=== PATIENT | male | born 2000 | race Asian ===

== ENCOUNTER 2021-04-05 09:41 | Inpatient (IN) ==
[2021-04-05] MEDS ORDERED: SODIUM CHLORIDE 0.9% 1000ML 1,000 ML IV SCH (10:00)
--- NOTE | 2021-04-05 10:02 | Emergency Department Note ---
History of Present Illness General Chief complaint: Weakness Time Seen by Provider: 04/05/21 09:43 Source: patient Mode of arrival: EMS Limitations: no limitations History of Present Illness Provider complaint: weakness Associated symptoms: + malaise and + weakness; no headaches, no nausea/vomiting or no shortness of breath Treatments prior to arrival: none This is a 20-year-old male who presents via EMS due to concern for 3 weeks of increased weakness. Patient states he initially noticed weakness in his legs 3 weeks ago but then began to spread more proximally. He states he feels achiness in the bilateral thigh area however the rest of the leg feels weak and numb. He states he then noticed the weakness and numbness into his arms recently as well. He denies any recent trauma or injury preceding this although states he did fall trying to get out of bed this morning. He denies headaches, dizziness, vision changes, nausea or vomiting. He denies any recent illness or sickness. Denies any recent vaccination. Denies any prior history of abnormal vaccine reactions or Guillain-Colindres. Denies any family history of neurologic conditions. He denies any change in diet or activity. He denies use of alcohol and recreational drugs. Denies any other ongoing medical problems, states he does not take any medications. Patient is left-hand dominant. Denies neck or back pain or recent injury. Pt seen during a time of high acuity and national emergency pandemic while wearing PPE. 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 Beliefs That Will Affect Care: None Current Living Situation: Other Current Living Situation Comment: off campus housing How many Children do You have: 0 Other Information That Helps Us Care for You: No Feels Safe at Home: Yes Safety Concerns: Feels Safe At This Time Assistive Devices: None Review of Systems A total of 10 systems reviewed and were otherwise negative All systems reviewed & are unremarkable except as noted in HPI & below Physical Exam Vital Signs Vital Signs - 24 hr 04/05/21 09:57 04/05/21 11:24 Temperature 37.0 C Temperature Source Oral Pulse Rate 99 H Pulse Rate [Apical] 93 H Pulse Rhythm Regular Pulse Rhythm [Apical] Regular Pulse Strength Normal Respiratory Rate 14 23 Respiratory Effort / Characteristics Non-Labored Spontaneous Non-Labored Spontaneous Respiratory Depth Normal Normal Respiratory Pattern Regular Regular Blood Pressure 141/73 H Blood Pressure [Right Arm] 128/73 Blood Pressure Mean 95 Blood Pressure Mean [Right Arm] 91 Blood Pressure Position Lying Blood Pressure Position [Right Arm] Lying Pulse Oximetry 96 96 Oxygen Delivery Method Room Air Room Air Sepsis Recent Fever Within 48 Hours No Sepsis New/Unexplained Change in Mental Status N/A Sepsis Action Taken by Nursing No Action Required GENERAL: alert, well appearing, well nourished, no distress, non-toxic EYE EXAM: normal conjunctiva, PERRL and EOM's grossly intact OROPHARYNX: no exudate, no erythema, lips, buccal mucosa, and tongue normal and mucous membranes are moist NECK: supple, no nuchal rigidity, no adenopathy, non-tender LUNGS: Clear to auscultation. Normal chest wall mechanics, no w/r/r HEART: no murmurs, S1 normal and S2 normal ABDOMEN: abdomen soft, non-tender, normo-active bowel sounds, no masses, no rebound or guarding. BACK: Back is symmetrical on inspection and there is no deformity, no midline tenderness, no CVA tenderness. SKIN: no rashes and no bruising UPPER EXTREMITIES: upper extremities are grossly normal. nml pulses b/l. Sensation intact, no deformity, weakness noted. Slightly increased strength noticed in the left upper extremity compared to the right. LOWER EXTREMITIES: No pitting edema. nml pulses b/l. Sensation intact, no deformity, weakness noted. NEURO EXAM: Normal sensorium, cranial nerves II-XII grossly intact, normal speech, weakness noted bilateral upper and lower extremities with decreased reflexes more pronounced in the lower extremities. Gross sensation intact. Course Course 1102: Pt updated on results and in agreement with the plan. Administered Medications Potassium Chloride/Sodium Chloride (Normal Saline W/20 Meq Kcl) 20 meq in 1,000 mls @ 50 mls/hr IV .Q20H [facility] Stop: 05/05/21 13:59 Last Admin: 04/05/21 14:22 Dose: 50 mls/hr Documented by: [id number] Discontinued Medications Sodium Chloride (Nss 1000ml) 1,000 mls @ 125 mls/hr IV .Q8H [facility] Stop: 05/05/21 09:59 Last Infusion: 04/05/21 13:45 Dose: 0 mls/hr Documented by: [id number] Admin: 04/05/21 10:25 Dose: 125 mls/hr Documented by: [id number] Magnesium Sulfate/Dextrose (Magnesium Sulfate / D5w) 1 gm in 100 mls @ 100 mls/hr IV Q1H [facility] Stop: 04/05/21 11:55 Last Infusion: 04/05/21 13:43 Dose: 0 mls/hr Documented by: [id number] Admin: 04/05/21 11:23 Dose: 100 mls/hr Documented by: [id number] Infusion: 04/05/21 11:23 Dose: 100 mls/hr Documented by: [id number] Admin: 04/05/21 10:25 Dose: 100 mls/hr Documented by: [id number] Potassium Chloride 40 meq/ (Sodium Chloride) 1,020 mls @ 125 mls/hr IV .[facility] Stop: 05/05/21 10:59 Last Infusion: 04/05/21 13:46 Dose: 0 mls/hr Documented by: [id number] Admin: 04/05/21 11:11 Dose: 125 mls/hr Documented by: [id number] Potassium Chloride (K Nasim / Wtr) 10 meq in 100 mls @ 200 mls/hr IV NOW [facility] Stop: 04/05/21 11:26 Last Infusion: 04/05/21 13:43 Dose: 0 mls/hr Documented by: [id number] Admin: 04/05/21 11:11 Dose: 200 mls/hr Documented by: [id number] Potassium Chloride (K Nasim / Wtr) 10 meq in 100 mls @ 200 mls/hr IV Q30M [facility] Stop: 04/05/21 12:59 Last Admin: 04/05/21 15:04 Dose: Not Given Documented by: [id number] Infusion: 04/05/21 13:44 Dose: 0 mls/hr Documented by: [id number] Admin: 04/05/21 12:46 Dose: 200 mls/hr Documented by: [id number] Infusion: 04/05/21 12:35 Dose: 200 mls/hr Documented by: [id number] Admin: 04/05/21 12:05 Dose: 200 mls/hr Documented by: [id number] Sodium Phosphate 30 mmol/ (Sodium Chloride) 510 mls @ 88 mls/hr IV ONE ONE Stop: 04/05/21 17:02 Last Admin: 04/05/21 11:28 Dose: 88 mls/hr Documented by: [id number] Potassium Chloride (Potassium Chloride Crtab 20 Meq Tabcr) 40 meq PO NOW [facility] Stop: 04/05/21 10:43 Last Admin: 04/05/21 11:10 Dose: 40 meq Documented by: [id number] Critical Care Time Critical Care Time: Yes Total Critical Care Time: 39 Critical care of 39 min performed to assess and manage high likelihood of life- threatening electrolyte abnormalities, involving labs and imaging performed with assessment to evaluate EKG abnormalities and weakness with frequent reassessment. This time includes bedside time, treatment discussions with patient/family/consultants, documentation time and excludes procedure time. Medical Decision Making Differential Diagnosis Differential Diagnosis includes but is not limited to dehydration, stroke, anemia, hypoglycemia, hyponatremia, hypernatremia, urinary tract infection, pneumonia, bronchitis, sepsis, gastroenteritis, additional abdominal pathology, metabolic abnormalities and infections. Medical Records Attestation: I reviewed the patient's medical records. Home Medications Current Medication List: was personally reviewed by me Laboratory Data Attestation: I reviewed the patient's lab results. Result diagrams: 04/05/21 09:35 04/05/21 14:33 Lab Results 04/05/21 04/05/21 04/05/21 Range/Units 09:35 09:35 10:05 WBC 9.23 (4.8-10.8) K/uL RBC 5.75 (4.7-6.1) M/uL Hgb 16.8 (14.0-18.0) g/dL Hct 48.5 (42-52) % MCV 84.3 (80-100) fL MCH 29.2 (25-34) pg MCHC 34.6 (32-36) g/dL RDW Std Deviation 36.7 (36.4-46.3) fL RDW Coeff of Rory 12.0 (11.5-14.5) % Plt Count 363 (130-400) K/uL MPV 10.6 H (7.4-10.4) fL Immature Gran % (Auto) 0.1 % Neut % (Auto) 80.1 % Lymph % (Auto) 14.7 % [place] % (Auto) 4.9 % Eos % (Auto) 0.1 % Baso % (Auto) 0.1 % Neut # (Auto) 7.39 H (1.4-6.5) K/uL Lymph # (Auto) 1.36 (1.2-3.4) K/uL [place] # (Auto) 0.45 (0.11-0.59) K/uL Eos # (Auto) 0.01 (0-0.5) K/uL Baso # (Auto) 0.01 (0-0.2) K/uL Immature Gran # (Auto) 0.01 (0.00-0.02) K/uL Sodium 142 (136-145) mmol/L Potassium 1.6 L* (3.5-5.1) mmol/L Chloride 111 H (98-107) mmol/L Carbon Dioxide 22 (21-32) mmol/L Anion Gap 9.0 (3-11) BUN 18 (7-18) mg/dl Creatinine 0.74 (0.6-1.4) mg/dl Est Cr Clr Drug Dosing 165.4 ml/min Est GFR ( Amer) > 150.0 ml/min Est GFR (Non-Af Amer) 131.9 ml/min BUN/Creatinine Ratio 24.7 H (10-20) Glucose 132 H (70-99) mg/dl Calcium 9.6 (8.5-10.1) mg/dl Phosphorus 1.2 L* (2.5-4.9) mg/dl Magnesium 2.1 (1.8-2.4) mg/dl Total Bilirubin 0.3 (0.2-1) mg/dl AST 37 (15-37) U/L ALT 78 (12-78) Alkaline Phosphatase 59 (45-117) U/L Troponin I < 0.015 (0-0.045) ng/ml Total Protein 8.3 H (6.4-8.2) gm/dl Albumin 4.1 (3.4-5.0) gm/dl Globulin 4.2 H (2.5-4.0) gm/dl Albumin/Globulin Ratio 1.0 (0.9-2) Lipase 93 (73-393) U/L TSH < 0.005 L (0.300-4.500) uIu/ml Free T4 2.88 H (0.8-1.6) ng/dl Specimen Hemolysis SARS-CoV-2, RNA, NAAT NEGATIVE (NEGATIVE) Imaging Data Radiologist's Impression: Head CT 04/05/21 09:53 CT SCAN OF THE BRAIN WITHOUT IV CONTRAST CLINICAL HISTORY: Generalized weakness. COMPARISON STUDY: No priors. TECHNIQUE: Unenhanced axial CT scan of the brain is performed from the vertex to the skull base. A dose lowering technique was utilized adhering to the principles of ALARA. CT DOSE: 638.56 mGycm FINDINGS: Brain parenchyma: The brain parenchyma is normal in appearance. There is no hemorrhage, mass effect, or evidence of acute territorial ischemia by CT criteria. Manjarrez-white matter differentiation is preserved. No extra-axial fluid collection is seen. Ventricles, sulci, cisterns: Normal in configuration. Intracranial vasculature: The visualized intracranial vasculature at the skull base is normal in appearance. Calvarium: Unremarkable. Sinuses and mastoids: The visualized paranasal sinuses are clear. The mastoid air cells are well pneumatized. Orbits: The bony orbits are grossly intact. IMPRESSION: No acute intracranial abnormality. ACT 112: Negative or not required by law. Electronically signed by: Bjorn Perez M.D. 04/05/2021 10:18 AM Chest X-Ray 04/05/21 09:56 XR chest 1V portable HISTORY: weakness COMPARISON: None. FINDINGS: The lungs are clear. Cardiac silhouette is normal in size. No pleural effusions. No pneumothorax. IMPRESSION: No acute process. ACT 112: Negative or not required by law. Electronically signed by: Clay Toledo M.D. 04/05/2021 11:13 AM ECG Data Attestation: I personally reviewed and interpreted this ECG as follows: Indication: + weakness Rate (beats per minute): 95 Rhythm: + normal sinus ECG Intervals/blocks: + Normal QRS and + Prolonged QT ECG Kinards: + Normal ECG ST segments: + Nonspecific ST abnormalities MDM Narrative This is a 20-year-old male presents the emergency department complaining of increasing weakness over the last 3 weeks. Patient states that started distally and has now become more proximal. Patient denied any recent illness or prior reaction, no history of neurologic conditions including in the family. No recent vaccinations to suggest Guillain-Colindres. Patient was afebrile and hemodynamically stable. Patient's EKG suggestive of electrolyte abnormality and due to the prolonged QTC patient was initially started on IV magnesium while other labs were pending. Patient found to have significant hypokalemia at 1.6 as well as hypophosphatemia. Patient made aware of all results and need for additional inpatient monitoring and treatment, he verbalized understanding. Case discussed with hospitalist. Patient remained hemodynamically stable with no additional ectopy or dysrhythmia while in the emergency room. Patient was started on IV repletion of magnesium as well as IV and oral repletion of his potassium and additional IV phosphorus repletion. While the etiology of his significant electrolyte abnormality is unclear given patient denied any medication changes or recreational drugs, I feel his weakness is most likely related to these. Given accompanying thyroid abnormalities, a thyrotoxic periodic paralysis is also possible. An order was placed for continuous cardiac monitoring. The monitor shows a rate of _96____ with __normal sinus____ rhythm. Impression & Plan Weakness, Hypokalemia, Hypophosphatemia, Abnormal TSH Discharge Plan Visit Data Chief Complaint: Weakness ED Provider: Tara Leone Discharge Problem: Weakness, Hypokalemia, Hypophosphatemia, Abnormal TSH Patient Disposition: Admitted As Inpatient Discharge Instructions Interventions: ED Discharge Assessment Last Done: 04/05/21 13:40
[2021-04-05 10:10] LABS: Basophils # (auto) 0.01 K/uL (0-0.2); Basophils % (auto) 0.1 %; Eosinophils # (auto) 0.01 K/uL (0-0.5); Eosinophils % (auto) 0.1 %; Hematocrit (blood only) 48.5 % (42-52); Hemoglobin 16.8 g/dL (14.0-18.0); Immature Granulocytes # (auto) 0.01 K/uL (0.00-0.02); Immature Granulocytes % (auto) 0.1 %; Lymphocytes # (auto) 1.36 K/uL (1.2-3.4); Lymphocytes % (auto) 14.7 %; Mean Corpuscular Hemoglobin 29.2 pg (25-34); Mean Corpuscular Hgb Conc 34.6 g/dL (32-36); Mean Corpuscular Volume 84.3 fL (80-100); Mean Platelet Volume 10.6 fL (7.4-10.4); Monocytes # (auto) 0.45 K/uL (0.11-0.59); Monocytes % (auto) 4.9 %; Neutrophils # (auto) 7.39 K/uL (1.4-6.5); Neutrophils % (auto) 80.1 %; Platelet Count 363 K/uL (130-400); RDW Standard Deviation 36.7 fL (36.4-46.3); Red Blood Count 5.75 M/uL (4.7-6.1); White Blood Count 9.23 K/uL (4.8-10.8)
--- NOTE | 2021-04-05 10:19 | CT Scan Report ---
CT SCAN OF THE BRAIN WITHOUT IV CONTRAST CLINICAL HISTORY: Generalized weakness. COMPARISON STUDY: No priors. TECHNIQUE: Unenhanced axial CT scan of the brain is performed from the vertex to the skull base. A d ose lowering technique was utilized adhering to the principles of ALARA. CT DOSE: 638.56 mGycm FINDINGS: Brain parenchyma: The brain parenchyma is normal in appearance. There is no hemorrhage, mass effect, or evidence of acute territorial ischemia by CT criteria. Manjarrez-white matter differentiation is preser arik. No extra-axial fluid collection is seen. Ventricles, sulci, cisterns: Normal in configuration. Intracranial vasculature: The visualized intracranial vasculature at the skull base is normal in appe arance. Calvarium: Unremarkable. Sinuses and mastoids: The visualized paranasal sinuses are clear. The mastoid air cells are well pneu matized. Orbits: The bony orbits are grossly intact. IMPRESSION: No acute intracranial abnormality. ACT 112: Negative or not required by law. Electronically signed by: Bjorn Perez M.D. 04/05/2021 10:18 AM
[2021-04-05] MEDS: MAGNESIUM SULFATE / D5W 1 GM/100 ML BAG IV SCH ×2 (10:25→11:23)
[2021-04-05] MEDS ORDERED: POTASSIUM CHLORIDE CRTAB 20 MEQ TABCR PO STA (10:42)
[2021-04-05 10:46] LABS: Alanine Aminotransferase 78 (12-78); Albumin Level 4.1 gm/dl (3.4-5.0); Alkaline Phosphatase 59 U/L (45-117); Aspartate Aminotransferase 37 U/L (15-37); BUN Creatinine Ratio 24.7 (10-20); Bilirubin,Total 0.3 mg/dl (0.2-1); Blood Urea Nitrogen 18 mg/dl (7-18); Calcium 9.6 mg/dl (8.5-10.1); Carbon Dioxide 22 mmol/L (21-32); Chloride 111 mmol/L (98-107); Creatinine Clr Calc Pharmacy 165.4 ml/min; Est GFR (African American) > 150.0 ml/min; Est GFR (Non-African American) 131.9 ml/min; Globulin 4.2 gm/dl (2.5-4.0); Glucose 132 mg/dl (70-99); Lipase 93 U/L (73-393); Phosphorus 1.2 mg/dl (2.5-4.9); Potassium 1.6 mmol/L (3.5-5.1); Sodium 142 mmol/L (136-145); Thyroid Stimulating Hormone < 0.005 uIu/ml (0.300-4.500); Total Protein 8.3 gm/dl (6.4-8.2); Troponin I < 0.015 ng/ml (0-0.045)
[2021-04-05] MEDS ORDERED: POTASSIUM CHLORIDE / WTR 10 MEQ/100 ML PLCT IV STA (10:57)
[2021-04-05] MEDS ORDERED: POTASSIUM CHLORIDE 40 MEQ in SODIUM CHLORIDE 0.9% 1000ML 1,000 ML IV SCH (11:00)
[2021-04-05 11:03] LABS: T4 Free Thyroxine 2.88 ng/dl (0.8-1.6)
[2021-04-05] MEDS ORDERED: SODIUM PHOSPHATE 30 MMOL in SODIUM CHLORIDE 0.9% 500 ML IV ONE (11:15)
--- NOTE | 2021-04-05 11:15 | XRay Report ---
XR chest 1V portable HISTORY: weakness COMPARISON: None. FINDINGS: The lungs are clear. Cardiac silhouette is normal in size. No pleural effusions. No pneumot horax. IMPRESSION: No acute process. ACT 112: Negative or not required by law. Electronically signed by: Clay Toledo M.D. 04/05/2021 11:13 AM
[2021-04-05 11:37] LABS: Magnesium 2.1 mg/dl (1.8-2.4)
[2021-04-05] MEDS: POTASSIUM CHLORIDE / WTR 10 MEQ/100 ML PLCT IV SCH ×3 (12:05→15:04)
--- NOTE | 2021-04-05 13:48 | History & Physical Report ---
Date of Service April 05, 2021 Assessment & Plan (1) Hypokalemia: (2) Hypophosphatemia: (3) Renal tubular acidosis: (4) Abnormal TSH: Plan: Mr. Perez is a 20-year-old Khmer male without any known chronic medical conditions who presented to [facility] ER today with Profound Weakness, Severe Hypokalemia, and Hypophosphatemia which are likely secondary to RTA. His weakness began approximately 3 weeks ago and has progressively worsened to the point that he cannot hold himself upright or stand up today. He describes an ache in his bilateral thighs and the rest of his legs feel weak and numb. He has noticed some weakness and numbness in his arms as well. He denies any injury preceding this symptoms -- although he did fall trying to get out of bed this morning due to the weakness. Patient denies headaches, dizziness, vision changes, blind spots, black spots, loss of visual ortiz, nausea, or vomiting. He denies any recent illnesses or sickness. He has had any recent vaccines. He denies any prior history of Guillain-Colindres or ever having these symptoms in the past. He denies any family history of neurologic conditions. He denies any changes in his diet or activities. He does not drink alcohol or use any recreational drugs. Patient is left-hand dominant. He denies neck or back pain or recent injury. He does not take any medications on a routine basis. In emergency room, the patient has markedly abnormal laboratories. Serum potassium levels 1.6 mmol/L, serum phosphorus level is low at 1.2 mg/dL. Blood glucose is 132 mg/dL, total protein and globulin are slightly elevated. Calcium levels within normal limits at 9.6 mg/dL. Serum magnesium level is 2.1 mg/dL. COVID test is negative. His EKG shows normal sinus rhythm at 95 beats per minute with an incomplete RBBB, corrected QT interval as 665 msec, this is an abnormal EKG. No prior tracings are available for comparison. Patient has received IV Sodium Phosphate, IV NSS with potassium Chloride rider, and oral supplementation as well. Recommend the followin. Admit to telemetry due to EKG changes and prolonged QT interval and the presence of marked electrolyte abnormalities. 2. Continue IV fluids, correct electrolyte abnormalities. 3. Consult Nephrology for suspected RTA. 4. Follow daily labs closely. Check urine pH. 5. Consider Methimazole for suppressed TSH. History of Present Illness Chief Complaint: -- Profound Weakness. -- Hypokalemia 1.6 mmol/L. -- Hypophosphatemia. -- Probable Renal Tubular Acidosis. Primary Care Provider: [facility] Mr. Perez is a 20-year-old Khmer male without any known chronic medical conditions who presented to [facility] ER today with Profound Weakness that began approximately 3 weeks ago and has progressively worsened to the point that he cannot hold himself upright or stand up today. He describes an ache in his bilateral thighs and the rest of his legs feel weak and numb. He has noticed some weakness and numbness in his arms as well. He denies any injury preceding this symptoms -- although he did fall trying to get out of bed this morning due to the weakness. Patient denies headaches, dizziness, vision changes, blind spots, black spots, loss of visual ortiz, nausea, or vomiting. He denies any recent illnesses or sickness. He has had any recent vaccines. He denies any prior history of Guillain-Colindres or ever having these symptoms in the past. He denies any family history of neurologic conditions. He denies any changes in his diet or activities. He does not drink alcohol or use any recreational drugs. Patient is left-hand dominant. He denies neck or back pain or recent injury. He does not take any medications on a routine basis. In emergency room, the patient has markedly abnormal laboratories. Serum potassium levels 1.6 mmol/L, serum phosphorus level is low at 1.2 mg/dL. Blood glucose is 132 mg/dL, total protein and globulin are slightly elevated. Calcium levels within normal limits at 9.6 mg/dL. Serum magnesium level is 2.1 mg/dL. COVID test is negative. His EKG shows normal sinus rhythm at 95 beats per minute with an incomplete RBBB, corrected QT interval as 665 msec, this is an abnormal EKG. No prior tracings are available for comparison. Allergies Allergy/AdvReac Type Severity Reaction Status Date / Time No Known Allergies Allergy Unverified 04/05/21 11:23 Home Medications Medication Instructions Recorded Confirmed Type No Known Home Medications 11/14/19 04/05/21 History Past Med/Surg History Medical History (Updated 04/05/21 @ 17:19 by Tara S. Pheasant, DO) No pertinent past medical history Surgical History No pertinent past surgical history Social History Smoking Status: Never smoker Hx Alcohol Use: Yes Hx Substance Use: No Preferred Language: Ugandan Communication Ability: Effective Medical Director Of Hospice Required: No Beliefs That Will Affect Care: None Current Living Situation: Other Current Living Situation Comment: off campus housing How many Children do You have: 0 Other Information That Helps Us Care for You: No Feels Safe at Home: Yes Safety Concerns: Feels Safe At This Time Assistive Devices: None Review of Systems Review of Systems: ROS is negative except as mentioned in HPI. Physical Exam Physical Exam: GENERAL: Patient lying on ER litter,no acute distress. HEENT: Head is atraumatic, normocephalic. EOM's intact. Facies symmetric. No perioral cyanosis. NECK: No JVD. JVP is not elevated. Carotid upstrokes are + 2 bilaterally. No bruits are noted. CHEST/LUNGS: Clear to auscultation throughout all lung ortiz. No wheezes, rales, or crackles. CVS: S1 and S2 are regular without obvious murmurs, gallops, or rubs. PMI is nondisplaced. No lifts, heaves, or thrills. No abdominal aortic or renal bruits. ABDOMINAL EXAM: Bowel sounds are present. No masses, organomegaly, or tenderness. EXTREMITIES: No clubbing or cyanosis. No edema. Intact posterior tibial and radial pulses bilaterally. NEUROLOGIC EXAM: Patient is awake, alert, and oriented. Pleasant and cooperative. Answers questions appropriately. Speech is clear. Weakness is noted in the major muscle groups of bilateral lower and upper extremities. Diminished deep tendon reflexes in upper and lower extremities, more pronounced in the lower extremities. Gait pattern not assessed. Results & Data Results & Data ([facility]) Vital Signs (Past 12 Hours) Vital Signs Temp Pulse Pulse Resp BP BP Pulse Ox 04/05/21 12:46 98 H 24 140/60 96 04/05/21 11:24 93 H 23 128/73 96 04/05/21 09:57 37.0 C 99 H 14 141/73 H 96 Laboratory Results Laboratory Results - last 24 hr 04/05/21 04/05/21 04/05/21 09:35 09:35 10:05 WBC 9.23 RBC 5.75 Hgb 16.8 Hct 48.5 MCV 84.3 MCH 29.2 MCHC 34.6 RDW Std Deviation 36.7 RDW Coeff of Rory 12.0 Plt Count 363 MPV 10.6 H Immature Gran % (Auto) 0.1 Neut % (Auto) 80.1 Lymph % (Auto) 14.7 Graves % (Auto) 4.9 Eos % (Auto) 0.1 Baso % (Auto) 0.1 Neut # (Auto) 7.39 H Lymph # (Auto) 1.36 Graves # (Auto) 0.45 Eos # (Auto) 0.01 Baso # (Auto) 0.01 Immature Gran # (Auto) 0.01 Sodium 142 Potassium 1.6 L* Chloride 111 H Carbon Dioxide 22 Anion Gap 9.0 BUN 18 Creatinine 0.74 Est Cr Clr Drug Dosing 165.4 Est GFR ( Amer) > 150.0 Est GFR (Non-Af Amer) 131.9 BUN/Creatinine Ratio 24.7 H Glucose 132 H Calcium 9.6 Phosphorus 1.2 L* Magnesium 2.1 Total Bilirubin 0.3 AST 37 ALT 78 Alkaline Phosphatase 59 Troponin I < 0.015 Total Protein 8.3 H Albumin 4.1 Globulin 4.2 H Albumin/Globulin Ratio 1.0 Lipase 93 TSH < 0.005 L Free T4 2.88 H Specimen Hemolysis SARS-CoV-2, RNA, NAAT NEGATIVE Diagnostic Findings CXR 04/05/21: -- No acute processes. Medications Administered Medications No Known Home Medications 11/14/19 [History Confirmed 04/05/21] Home Medications Enoxaparin Sodium (Enoxaparin Inj 40 Mg/0.4 Ml Syr) 40 mg SQ Q24H [facility] Stop: 05/05/21 13:40 Sodium Phosphate 30 mmol/ (Sodium Chloride) 510 mls @ 88 mls/hr IV ONE ONE Stop: 04/05/21 17:02 Last Admin: 04/05/21 11:28 Dose: 88 mls/hr Documented by: Potassium Chloride/Sodium Chloride (Normal Saline W/20 Meq Kcl) 20 meq in 1,000 mls @ 50 mls/hr IV .Q20H [facility] Stop: 05/05/21 13:40 Code Status & VTE Plan Code Status Full Code VTE Prophylaxis Plan VTE Prophylaxis will be ordered: Yes Supervising Physician Co-Signing Physician Notes During face to face encoutner, I obtained a history and physical examination Discussed plan of care with patient and APC Nithin I reviewed above note and agree with it. Answered all of the patient's questions. Patient will be admitted for hyperkalemia. dimitri consult nephro for possible RTA workup given no obvious cause of hypokalemia in patient. PG Care Time/CCT Total # of Minutes Spent Total Time Spent with Patient: Total time spent is greater than 50% in coordination of care (as documented) at patient's floor/unit and/or counseling patient:38 Coding Level of Care Code 06870 Initial Inpt Care Lvl 3 Diagnoses Hypokalemia E87.6 Hypophosphatemia E83.39 Renal tubular acidosis N25.89 Abnormal TSH R79.89 Time Spent (min) 55
[2021-04-05] MEDS: NSS + 20MEQ KCL 20 MEQ/1,000 ML BAG IV SCH (14:22)
[2021-04-05 15:16] LABS: Bacteria Urine Automated Negative (Negative); Epithelial Cell Urine Auto >30 /lpf (0-5); RBC Urine Automated 0-4 /hpf (0-4)
[2021-04-05 15:31] LABS: Alanine Aminotransferase 62 (12-78); Albumin Level 3.3 gm/dl (3.4-5.0); Alkaline Phosphatase 49 U/L (45-117); Aspartate Aminotransferase 25 U/L (15-37); Bilirubin,Total 0.4 mg/dl (0.2-1); Blood Urea Nitrogen 16 mg/dl (7-18); Calcium 8.3 mg/dl (8.5-10.1); Carbon Dioxide 20 mmol/L (21-32); Chloride 114 mmol/L (98-107); Creatinine Clr Calc Pharmacy 198.5 ml/min; Est GFR (African American) > 150.0 ml/min; Est GFR (Non-African American) 143.7 ml/min; Globulin 3.4 gm/dl (2.5-4.0); Glucose 117 mg/dl (70-99); Phosphorus 4.3 mg/dl (2.5-4.9); Potassium 3.4 mmol/L (3.5-5.1); Sodium 142 mmol/L (136-145); Total Protein 6.7 gm/dl (6.4-8.2)
--- NOTE | 2021-04-05 16:01 | Nephrology Consultation ---
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 Perez is a 20 year old male who is seen at the request of the [facility] service to assist in the evaluation and management of electrolyte abnormalities and weakness. 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 He reports no chronic medical illnesses and is on no chronic medications. He has no family history of thyroid or renal disorder. Mr. Perez states that he recently visited [facility] and did a lot of walking. Upon returning home he became weak and found that it was difficult to stand from a sitting position. This progressively worsened and began to affect his arms as well. Mr. Perez presented to the [facility] EMD where he was found to have K 1.6, Mg 2.1 and PO4 1.2. ECG revealed QT interval 665 msec. He was admitted to the hospitalist service and potassium and phosphate supplementation has been started. Of note, thyroid function studies were also ordered. TSH was undetectable and T4 was high at 2.88. Allergies Allergy/AdvReac Type Severity Reaction Status Date / Time No Known Allergies Allergy Unverified 04/05/21 11:23 Home Medications Medication Instructions Recorded Confirmed Type No Known Home Medications 11/14/19 04/05/21 History Patient History Medical History (Updated 04/05/21 @ 15:53 by Wojciech Benjamin MD) No pertinent past medical history Surgical History No pertinent past surgical history Social History Smoking Status: Never smoker Hx Alcohol Use: Yes Hx Substance Use: No Preferred Language: Ghanaian Communication Ability: Effective Facer Operator Required: No Beliefs That Will Affect Care: None Current Living Situation: Other Current Living Situation Comment: off campus housing How many Children do You have: 0 Other Information That Helps Us Care for You: No Feels Safe at Home: Yes Safety Concerns: Feels Safe At This Time Assistive Devices: None Review of Systems Constitutional: no fever Eyes: no problem reported Ear, Nose, Mouth, Throat: no problem reported Respiratory: no cough and no dyspnea Cardiovascular: + palpitations; no chest pain and no edema Gastrointestinal: no abdominal pain, no nausea, no vomiting and no diarrhea/loose stools Genitourinary: no dysuria, no urinary hesitancy or no hematuria Musculoskeletal: no back pain Integumentary: no rash Neurologic: + generalized weakness Physical Exam Constitutional: healthy appearing; not in distress Eyes: PERRL, conjunctivae normal, anicteric sclerae ENMT: external ear and nose normal, oropharynx normal Neck: trachea midline, no thyromegaly Respiratory: normal respiratory effort, lungs clear to auscultation Cardiovascular: Rate/Rhythm: regular rate and + tachycardic Gastrointestinal (Abdomen): normal bowel sounds, soft, nontender, no hepatosplenomegaly Skin: no rashes, warm and dry Neurologic: awake; not confused Results & Data ([facility]) Vital Signs (Past 12 Hours) Vital Signs Temp Pulse Pulse Resp BP BP Pulse Ox 04/05/21 15:19 115 H 04/05/21 15:05 36.6 C 107 H 20 143/76 H 94 04/05/21 13:49 36.7 C 102 H 16 105/56 L 99 04/05/21 13:30 107 H 04/05/21 12:46 98 H 24 140/60 96 04/05/21 11:24 93 H 23 128/73 96 04/05/21 09:57 37.0 C 99 H 14 141/73 H 96 Laboratory Results Laboratory Results - last 48 hr 04/05/21 04/05/21 04/05/21 09:35 09:35 10:05 WBC 9.23 RBC 5.75 Hgb 16.8 Hct 48.5 MCV 84.3 MCH 29.2 MCHC 34.6 RDW Std Deviation 36.7 RDW Coeff of Rory 12.0 Plt Count 363 MPV 10.6 H Immature Gran % (Auto) 0.1 Neut % (Auto) 80.1 Lymph % (Auto) 14.7 Jack % (Auto) 4.9 Eos % (Auto) 0.1 Baso % (Auto) 0.1 Neut # (Auto) 7.39 H Lymph # (Auto) 1.36 Jack # (Auto) 0.45 Eos # (Auto) 0.01 Baso # (Auto) 0.01 Immature Gran # (Auto) 0.01 Sodium 142 Potassium 1.6 L* Chloride 111 H Carbon Dioxide 22 Anion Gap 9.0 BUN 18 Creatinine 0.74 Est Cr Clr Drug Dosing 165.4 Est GFR ( Amer) > 150.0 Est GFR (Non-Af Amer) 131.9 BUN/Creatinine Ratio 24.7 H Glucose 132 H Calcium 9.6 Phosphorus 1.2 L* Magnesium 2.1 Total Bilirubin 0.3 AST 37 ALT 78 Alkaline Phosphatase 59 Troponin I < 0.015 Total Protein 8.3 H Albumin 4.1 Globulin 4.2 H Albumin/Globulin Ratio 1.0 Lipase 93 TSH < 0.005 L Free T4 2.88 H Specimen Hemolysis Urine WBC (Auto) Urine RBC (Auto) U Hyaline Cast (Auto) U Epithel Cells (Auto) Urine Bacteria (Auto) SARS-CoV-2, RNA, NAAT NEGATIVE 04/05/21 04/05/21 14:33 Unknown WBC RBC Hgb Hct MCV MCH MCHC RDW Std Deviation RDW Coeff of Rory Plt Count MPV Immature Gran % (Auto) Neut % (Auto) Lymph % (Auto) Jack % (Auto) Eos % (Auto) Baso % (Auto) Neut # (Auto) Lymph # (Auto) Jack # (Auto) Eos # (Auto) Baso # (Auto) Immature Gran # (Auto) Sodium 142 Potassium 3.4 L D Chloride 114 H Carbon Dioxide 20 L Anion Gap 8.0 BUN 16 Creatinine 0.60 Est Cr Clr Drug Dosing 198.5 Est GFR ( Amer) > 150.0 Est GFR (Non-Af Amer) 143.7 BUN/Creatinine Ratio 27.0 H Glucose 117 H Calcium 8.3 L Phosphorus 4.3 D Magnesium Total Bilirubin 0.4 AST 25 ALT 62 Alkaline Phosphatase 49 Troponin I Total Protein 6.7 Albumin 3.3 L Globulin 3.4 Albumin/Globulin Ratio 1.0 Lipase TSH Free T4 Specimen Hemolysis Urine WBC (Auto) 10-30 H Urine RBC (Auto) 0-4 U Hyaline Cast (Auto) 5-10 H U Epithel Cells (Auto) >30 H Urine Bacteria (Auto) Negative SARS-CoV-2, RNA, NAAT PG Care Time/CCT Total # of Minutes Spent Total Time Spent with Patient: Total time spent is greater than 50% in coordination of care (as documented) at patient's floor/unit and/or counseling patient: Coding Level of Care Code 60470 Inpt Consult Level 5 Diagnoses Thyrotoxic periodic paralysis G72.3
[2021-04-05 17:02] LABS: Magnesium 2.2 mg/dl (1.8-2.4)
[2021-04-05] MEDS ORDERED: ENOXAPARIN INJ 40 MG/0.4 ML SYR SQ SCH (21:00)
[2021-04-06 07:42] LABS: Chloride 109 mmol/L (98-107); Potassium 4.1 mmol/L (3.5-5.1); Sodium 139 mmol/L (136-145)
[2021-04-06 07:45] LABS: Alanine Aminotransferase 75 (12-78); Albumin Level 3.6 gm/dl (3.4-5.0); Aspartate Aminotransferase 38 U/L (15-37); BUN Creatinine Ratio 13.4 (10-20); Blood Urea Nitrogen 9 mg/dl (7-18); Calcium 9.5 mg/dl (8.5-10.1); Carbon Dioxide 24 mmol/L (21-32); Creatinine Clr Calc Pharmacy 173.7 ml/min; Est GFR (African American) > 150.0 ml/min; Est GFR (Non-African American) 136.5 ml/min; Glucose 93 mg/dl (70-99); Magnesium 2.2 mg/dl (1.8-2.4)
[2021-04-06 07:48] LABS: Alkaline Phosphatase 52 U/L (45-117); Bilirubin,Total 0.7 mg/dl (0.2-1); Globulin 3.7 gm/dl (2.5-4.0); Phosphorus 3.9 mg/dl (2.5-4.9); Total Protein 7.3 gm/dl (6.4-8.2)
--- NOTE | 2021-04-06 07:58 | Hospitalist Progress Note ---
Date of Service April 06, 2021 Assessment & Plan Plan: Assessment & Plan (1) Hypokalemia: (2) Hypophosphatemia: (3) Renal tubular acidosis: (4) Abnormal TSH: Admission and Anticipated Discharge Date Admission Date: April 05, 2021 Review of Systems Constitutional: no fever and no chills Respiratory: no cough, no chest congestion, no dyspnea and no wheezing Cardiovascular: no chest pain, no palpitations and no edema Gastrointestinal: no abdominal pain, no heartburn, no nausea, no vomiting and no change in bowel habits Neurologic: no gait abnormality, no falls and no headache(s) Physical Exam Physical Exam: Constitutional: WD/WN, vitals as above ENMT: External ear and nose normal, TMs and EAC normal Neck: trachea midline, no thyromegaly Lymphatic: No cervical lymphadenopathy Respiratory: Effort normal, CTA B/L CV: RRR, no murmur, no edema Abdomen: normal bowel sounds, soft, nontender, no hepatosplenomegaly Neurologic: Normal gait Musculoskeletal: Skin: Psychiatric: Results & Data Results & Data ([facility]) Vital Signs (Past 12 Hours) Vital Signs Temp Pulse Pulse Resp BP Pulse Ox 04/06/21 07:06 80 04/06/21 03:25 36.6 C 84 17 113/75 97 04/06/21 00:06 36.8 C 100 H 16 98/63 L 96 Laboratory Results Laboratory Results - last 24 hr 04/05/21 04/05/21 04/05/21 09:35 09:35 10:05 WBC 9.23 RBC 5.75 Hgb 16.8 Hct 48.5 MCV 84.3 MCH 29.2 MCHC 34.6 RDW Std Deviation 36.7 RDW Coeff of Rory 12.0 Plt Count 363 MPV 10.6 H Immature Gran % (Auto) 0.1 Neut % (Auto) 80.1 Lymph % (Auto) 14.7 [place] % (Auto) 4.9 Eos % (Auto) 0.1 Baso % (Auto) 0.1 Neut # (Auto) 7.39 H Lymph # (Auto) 1.36 [place] # (Auto) 0.45 Eos # (Auto) 0.01 Baso # (Auto) 0.01 Immature Gran # (Auto) 0.01 Sodium 142 Potassium 1.6 L* Chloride 111 H Carbon Dioxide 22 Anion Gap 9.0 BUN 18 Creatinine 0.74 Est Cr Clr Drug Dosing 165.4 Est GFR ( Amer) > 150.0 Est GFR (Non-Af Amer) 131.9 BUN/Creatinine Ratio 24.7 H Glucose 132 H Calcium 9.6 Phosphorus 1.2 L* Magnesium 2.1 Total Bilirubin 0.3 AST 37 ALT 78 Alkaline Phosphatase 59 Troponin I < 0.015 Total Protein 8.3 H Albumin 4.1 Globulin 4.2 H Albumin/Globulin Ratio 1.0 Lipase 93 TSH < 0.005 L Free T4 2.88 H Specimen Hemolysis Urine WBC (Auto) Urine RBC (Auto) U Hyaline Cast (Auto) U Epithel Cells (Auto) Urine Bacteria (Auto) SARS-CoV-2, RNA, NAAT NEGATIVE 04/05/21 04/05/21 04/06/21 14:33 Unknown 06:57 WBC RBC Hgb Hct MCV MCH MCHC RDW Std Deviation RDW Coeff of Rory Plt Count MPV Immature Gran % (Auto) Neut % (Auto) Lymph % (Auto) [place] % (Auto) Eos % (Auto) Baso % (Auto) Neut # (Auto) Lymph # (Auto) [place] # (Auto) Eos # (Auto) Baso # (Auto) Immature Gran # (Auto) Sodium 142 139 Potassium 3.4 L D 4.1 D Chloride 114 H 109 H Carbon Dioxide 20 L 24 Anion Gap 8.0 6.0 BUN 16 9 D Creatinine 0.60 0.68 Est Cr Clr Drug Dosing 198.5 173.7 Est GFR ( Amer) > 150.0 > 150.0 Est GFR (Non-Af Amer) 143.7 136.5 BUN/Creatinine Ratio 27.0 H 13.4 Glucose 117 H 93 Calcium 8.3 L 9.5 Phosphorus 4.3 D 3.9 Magnesium 2.2 2.2 Total Bilirubin 0.4 0.7 AST 25 38 H ALT 62 75 Alkaline Phosphatase 49 52 Troponin I Total Protein 6.7 7.3 Albumin 3.3 L 3.6 Globulin 3.4 3.7 Albumin/Globulin Ratio 1.0 1.0 Lipase TSH Free T4 Specimen Hemolysis Urine WBC (Auto) 10-30 H Urine RBC (Auto) 0-4 U Hyaline Cast (Auto) 5-10 H U Epithel Cells (Auto) >30 H Urine Bacteria (Auto) Negative SARS-CoV-2, RNA, NAAT Medications Administered Current Inpatient Medications Enoxaparin Sodium (Enoxaparin Inj 40 Mg/0.4 Ml Syr) 40 mg SQ Q24H MARICRUZ Stop: 05/05/21 20:59 Last Admin: 04/05/21 20:09 Dose: Not Given Documented by: Potassium Chloride/Sodium Chloride (Normal Saline W/20 Meq Kcl) 20 meq in 1,000 mls @ 50 mls/hr IV .Q20H MARICRUZ Stop: 05/05/21 13:59 Last Admin: 04/05/21 14:22 Dose: 50 mls/hr Documented by: PG Care Time/CCT Total # of Minutes Spent Total Time Spent with Patient: Total time spent is greater than 50% in coordination of care (as documented) at patient's floor/unit and/or counseling patient: Coding
--- NOTE | 2021-04-06 09:30 | Nephrology Progress Note ---
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 Electrolytes have been corrected * Advised avoiding strenuous exercise, large carbohydrate meals until evaluated by Endocrinology * Recommend consultation w/ Endocrinology for management of hyperthyroidism * No further Nephrology evaluation indicated at this time. Will sign off. Please call if further assistance is needed Admission and Anticipated Discharge Date Admission Date: April 05, 2021 Subjective Mr. Perez was evaluated in his hospital room this morning. He was able to ambulate to the BR yesterday. He is anxious to return home. Review of Systems Constitutional: no fever Eyes: no problem reported Ear, Nose, Mouth, Throat: no problem reported Respiratory: no cough and no dyspnea Cardiovascular: + palpitations; no chest pain and no edema Gastrointestinal: no abdominal pain, no nausea, no vomiting and no diarrhea/loose stools Genitourinary: no dysuria, no urinary hesitancy or no hematuria Musculoskeletal: no back pain Integumentary: no rash Physical Exam Constitutional: healthy appearing; not in distress Eyes: PERRL, conjunctivae normal, anicteric sclerae ENMT: external ear and nose normal, oropharynx normal Neck: trachea midline, no thyromegaly Respiratory: normal respiratory effort, lungs clear to auscultation Cardiovascular: Rate/Rhythm: regular rate and + tachycardic Gastrointestinal (Abdomen): normal bowel sounds, soft, nontender, no hepatosplenomegaly Skin: no rashes, warm and dry Neurologic: awake; not confused Results & Data ([facility]) Vital Signs (Past 12 Hours) Vital Signs Temp Pulse Pulse Resp BP Pulse Ox 04/06/21 07:58 36.8 C 88 16 96/61 L 96 04/06/21 07:06 80 04/06/21 03:25 36.6 C 84 17 113/75 97 04/06/21 00:06 36.8 C 100 H 16 98/63 L 96 Laboratory Results Laboratory Tests 04/05/21 04/06/21 09:35 06:57 Sodium 139 Potassium 4.1 D Chloride 109 H Carbon Dioxide 24 BUN 9 D Creatinine 0.68 Est GFR (Non-Af Amer) 136.5 Glucose 93 Calcium 9.5 Phosphorus 3.9 Magnesium 2.2 TSH < 0.005 L Free T4 2.88 H PG Care Time/CCT Total # of Minutes Spent Total Time Spent with Patient: Total time spent is greater than 50% in coordination of care (as documented) at patient's floor/unit and/or counseling patient: Coding Level of Care Code 62905 Subseq Hosp Care Lvl 3 Diagnoses Thyrotoxic periodic paralysis G72.3
[2021-04-06] MEDS: NSS + 20MEQ KCL 20 MEQ/1,000 ML BAG IV SCH (11:13)
[2021-04-06] MEDS ORDERED: PROPRANOLOL HCL 20 MG TAB PO SCH (11:45)
[2021-04-06 12:59] LABS: Blood Urea Nitrogen 11 mg/dl (7-18); Calcium 9.6 mg/dl (8.5-10.1); Carbon Dioxide 25 mmol/L (21-32); Chloride 107 mmol/L (98-107); Creatinine Clr Calc Pharmacy 155.4 ml/min; Est GFR (African American) > 150.0 ml/min; Est GFR (Non-African American) 130.4 ml/min; Glucose 106 mg/dl (70-99); Magnesium 2.1 mg/dl (1.8-2.4); Potassium 4.3 mmol/L (3.5-5.1); Sodium 140 mmol/L (136-145)
[2021-04-06 13:10] LABS: Phosphorus 3.6 mg/dl (2.5-4.9); Thyroid Stimulating Hormone < 0.005 uIu/ml (0.300-4.500)
[2021-04-06 13:25] LABS: T4 Free Thyroxine 3.29 ng/dl (0.8-1.6)
--- NOTE | 2021-04-06 15:11 | Discharge Summary ---
Date of Service April 06, 2021 Admission HPI Per Admitting Provider Mr. Perez is a 20-year-old Frisian male without any known chronic medical conditions who presented to [facility] ER today with Profound Weakness that began approximately 3 weeks ago and has progressively worsened to the point that he cannot hold himself upright or stand up today. He describes an ache in his bilateral thighs and the rest of his legs feel weak and numb. He has noticed some weakness and numbness in his arms as well. He denies any injury preceding this symptoms -- although he did fall trying to get out of bed this morning due to the weakness. Patient denies headaches, dizziness, vision changes, blind spots, black spots, loss of visual ortiz, nausea, or vomiting. He denies any recent illnesses or sickness. He has had any recent vaccines. He denies any prior history of Guillain-Colindres or ever having these symptoms in the past. He denies any family history of neurologic conditions. He denies any changes in his diet or activities. He does not drink alcohol or use any recreational drugs. Patient is left-hand dominant. He denies neck or back pain or recent injury. He does not take any medications on a routine basis. In emergency room, the patient has markedly abnormal laboratories. Serum potassium levels 1.6 mmol/L, serum phosphorus level is low at 1.2 mg/dL. Blood glucose is 132 mg/dL, total protein and globulin are slightly elevated. Calcium levels within normal limits at 9.6 mg/dL. Serum magnesium level is 2.1 mg/dL. COVID test is negative. His EKG shows normal sinus rhythm at 95 beats per minute with an incomplete RBBB, corrected QT interval as 665 msec, this is an abnormal EKG. No prior tracings are available for comparison. Admission Exam Per Admitting Provider GENERAL: Patient lying on ER litter,no acute distress. HEENT: Head is atraumatic, normocephalic. EOM's intact. Facies symmetric. No perioral cyanosis. NECK: No JVD. JVP is not elevated. Carotid upstrokes are + 2 bilaterally. No bruits are noted. CHEST/LUNGS: Clear to auscultation throughout all lung ortiz. No wheezes, rales, or crackles. CVS: S1 and S2 are regular without obvious murmurs, gallops, or rubs. PMI is nondisplaced. No lifts, heaves, or thrills. No abdominal aortic or renal bruits. ABDOMINAL EXAM: Bowel sounds are present. No masses, organomegaly, or tenderness. EXTREMITIES: No clubbing or cyanosis. No edema. Intact posterior tibial and radial pulses bilaterally. NEUROLOGIC EXAM: Patient is awake, alert, and oriented. Pleasant and cooperative. Answers questions appropriately. Speech is clear. Weakness is noted in the major muscle groups of bilateral lower and upper extremities. Diminished deep tendon reflexes in upper and lower extremities, more pronounced in the lower extremities. Gait pattern not assessed. Principal Diagnosis Thyrotoxic periodic paralysis Discharge Exam Neck trachea midline, no thyromegaly Thyroid: normal thyroid Respiratory normal respiratory effort, lungs clear to auscultation Cardiovascular RRR, no murmur, no edema Gastrointestinal (Abdomen) normal bowel sounds, soft, nontender, no hepatosplenomegaly Discharge Data Allergies Allergy/AdvReac Type Severity Reaction Status Date / Time No Known Allergies Allergy Unverified 04/05/21 11:23 Consultations 04/05/21 11:43 ED Decision to Admit Stat 04/05/21 13:41 Consult Nephrology Routine Ordered Studies 04/05/21 09:53 CT head/brain wo con Stat Hospital Course (1) Thyrotoxic periodic paralysis: (2) Hypophosphatemia: (3) Hypokalemia: (4) Hypophosphatemia: (5) Weakness: (6) Hyperthyroidism determined by thyroid function test: 20-year-old male presenting with hypokalemia hypophosphatemia and weakness presenting to the emergency room for evaluation. During his hospital stay and evaluation electrolytes were replaced, symptoms resolved quickly. Nephrology consult her for possible renal tubular acidosis, was found to have hyperthyroidism and diagnosed with thyrotoxic periodic paralysis. Patient's has no complaints at this time. Is expressing desire to leave the hospital, is concerned about future finals at [employer]. Follow-up lab work was completed All of normalized, patient is eating well with no weakness at this time. started on low dose of propranolol 40 mg daily hopefully reduce chances a repeat symptoms Made the patient aware it is important that he follows up with [facility] for repeat lab work and endocrinology will contact the patient to make a follow-up appointment to further evaluate and treat his hyperthyroidism Total Time Total Time Spent Total Time Spent (In Minutes): >30 Discharge Plan Discharge Items Patient Disposition: Home - Self-Care Reason For Visit: HYPOKALEMIA,HYPOPHPSPHATEMIA,WEAKNESS Discharge Diagnosis: Thyrotoxicosis Periodic paralysis Hyperthyroidism Condition on Discharge: Good Activity: As commented below Activity Comment: Recommendeed reduced physical Activity until evaluation by Endocrinology Lifting: Gradually increase as tolerated Bathing: No limitations Sexual Activity: When tolerated Exercise/Sports: None Driving/Machine Use: No limitations Weightbearing: Full weightbearing Non-emergency contact: Primary Care Provider Call non-emergency contact if: you have any medication questions, your symptoms worsen and you have a fever Follow-up/Referrals: Karson Foote MD [Physician] - [facility] [Primary Care Provider] - Diet: Regular Ambulatory Orders: Basic Metabolic Panel (Routine) Timeframe: 2 Days Location: Determined by Patient Ordered By: Rivas Bermudez Magnesium (Routine) Timeframe: 2 Days Location: Determined by Patient Ordered By: Rivas Bermudez Phosphorus (Routine) Timeframe: 2 Days Location: Determined by Patient Ordered By: Rivas Bermudez Addtl Attending Provider Instructions: follow-up with [facility], obtain repeat lab work at urine appointment Follow-up with endocrinology to evaluate and treat hyperthyroidism Pending Studies at Discharge: No Stand-Alone Forms: [employer], Smoking Cessation Medications and DC Order Prescriptions: New propranolol 20 mg Tablet 40 mg PO DAILY Qty: 30 RF: 0 No Action No Known Home Medications RF: 0 Discharge Orders: Discharge Order (Routine); Ordered 04/06/21 Ordered By: Rivas Bermudez Admission Data Admit Date/Time: 04/05/21 12:18 Attending Provider: Rivas Bermudez Admit Provider: Jer Mcnamara Primary Care Provider: [facility] Other Providers: Jer Mcnamara ; Wojciech Benjamin Coding Level of Care Code 57875 OBS Care - Discharge Diagnoses Thyrotoxic periodic paralysis G72.3 Hypophosphatemia E83.39 Hypokalemia E87.6 Hypophosphatemia E83.39 Weakness R53.1 Hyperthyroidism determined by thyroid function test E05.90; R94.6
--- NOTE | 2021-04-06 16:00 | Electrocardiogram Report ---
Test Reason : Blood Pressure : / mmHG Vent. Rate : 095 BPM Atrial Rate : 095 BPM P-R Int : 192 ms QRS Dur : 112 ms QT Int : 440 ms P-R-T Axes : 077 087 023 degrees QTc Int : 554 ms Normal sinus rhythm with 1st degree A-V block Incomplete right bundle branch block Prolonged QT Abnormal ECG No previous ECGs available Confirmed by Bijan Hernández ([id number]) on 04/06/2021 3:59:50 PM Referred By: Confirmed By:Bijan Hernández
== END 2021-04-06 16:55 | disposition home or self-care (01) | DRG 93 ==
LOC: ED 09:41 → 2S 12:18 → SUATTDRO 12:18 → 2S 13:40

== ENCOUNTER 2021-04-16 03:22 | Inpatient (IN) ==
[2021-04-16 04:49] LABS: Basophils # (auto) 0.01 K/uL (0-0.2); Basophils % (auto) 0.2 %; Eosinophils # (auto) 0.14 K/uL (0-0.5); Eosinophils % (auto) 2.2 %; Hematocrit (blood only) 48.6 % (42-52); Hemoglobin 16.5 g/dL (14.0-18.0); Immature Granulocytes # (auto) 0.01 K/uL (0.00-0.02); Immature Granulocytes % (auto) 0.2 %; Lymphocytes # (auto) 1.66 K/uL (1.2-3.4); Lymphocytes % (auto) 25.7 %; Mean Corpuscular Hemoglobin 28.7 pg (25-34); Mean Corpuscular Volume 84.7 fL (80-100); Mean Platelet Volume 10.5 fL (7.4-10.4); Monocytes % (auto) 7.8 %; Neutrophils # (auto) 4.13 K/uL (1.4-6.5); Neutrophils % (auto) 63.9 %; Platelet Count 346 K/uL (130-400); RDW Coefficient of Variation 12.2 % (11.5-14.5); RDW Standard Deviation 37.8 fL (36.4-46.3); Red Blood Count 5.74 M/uL (4.7-6.1); White Blood Count 6.45 K/uL (4.8-10.8)
[2021-04-16 05:07] LABS: Partial Thromboplastin Ratio 1.1; Prothrombin Time 10.1 Seconds (9.0-12.0)
[2021-04-16 05:33] LABS: Alanine Aminotransferase 72 (12-78); Albumin Globulin Ratio 0.9 (0.9-2); Albumin Level 3.7 gm/dl (3.4-5.0); Alkaline Phosphatase 67 U/L (45-117); Aspartate Aminotransferase 22 U/L (15-37); BUN Creatinine Ratio 19.2 (10-20); Bilirubin,Total 0.3 mg/dl (0.2-1); Blood Urea Nitrogen 13 mg/dl (7-18); C Reactive Protein 0.34 mg/dl (0-0.29); Calcium 9.5 mg/dl (8.5-10.1); Carbon Dioxide 26 mmol/L (21-32); Chloride 110 mmol/L (98-107); Creatine Kinase 471 U/L (39-308); Creatinine Clr Calc Pharmacy 188.2 ml/min; Est GFR (African American) > 150.0 ml/min; Est GFR (Non-African American) 138.2 ml/min; Globulin 3.9 gm/dl (2.5-4.0); Glucose 130 mg/dl (70-99); Phosphorus 2.1 mg/dl (2.5-4.9); Sodium 142 mmol/L (136-145); Thyroid Stimulating Hormone < 0.005 uIu/ml (0.300-4.500); Total Protein 7.6 gm/dl (6.4-8.2); Troponin I < 0.015 ng/ml (0-0.045)
[2021-04-16] MEDS ORDERED: POTASSIUM CHLORIDE / WTR 10 MEQ/100 ML PLCT IV ONE (05:35)
[2021-04-16] MEDS ORDERED: POTASSIUM CHLORIDE CRTAB 20 MEQ TABCR PO STA (05:35)
[2021-04-16 05:39] LABS: Lyme Ab IgG w/WB Rflx Negative (Negative); Lyme Ab IgM w/WB Rflx Negative (Negative)
[2021-04-16 05:55] LABS: T4 Free Thyroxine 2.28 ng/dl (0.8-1.6)
--- NOTE | 2021-04-16 07:14 | Emergency Department Note ---
History of Present Illness General Chief complaint: Leg Weakness, Bilateral Stated complaint: LEGS NOT WORKING RIGHT Time Seen by Provider: 04/16/21 03:33 History of Present Illness Maximum Pain Intensity: 8 This is a 20-year-old male presenting to the emergency department for evaluation of decreased sensation and difficulty moving his right leg. The patient was seen and evaluated in this facility for similar symptoms roughly 2 weeks ago. At that visit he was found to be hyperthyroid with impressive hypokalemia at 1.6. 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 His potassium was repleted and he did feel better. Evidently the patient followed with endocrinology and has started on Tapazole. He states he has been taking his medications as prescribed. The patient was improving since the time of discharge, but states that he went running 2 days ago. The patient was explicitly instructed to reduce physical activity, but states he did not realize this was contraindicated with his condition. After running he did develop his discomfort. He states that his pain is an 8/10, and not as bad as it was initially, as today it is notably affecting his right leg. Home Medications Medication Instructions Recorded Confirmed Type propranolol 20 mg tablet 40 mg PO DAILY #30 tab 04/06/21 Rx methimazole 10 mg tablet 20 mg PO BID #90 tab 04/08/21 Rx Allergies Allergy/AdvReac Type Severity Reaction Status Date / Time No Known Allergies Allergy Unverified 04/05/21 11:23 Past Med/Surg History Medical History Abnormal TSH Hypokalemia No pertinent past medical history Thyrotoxic periodic paralysis Surgical History No pertinent past surgical history Social History Smoking Status: Never smoker Hx Alcohol Use: Yes Hx Substance Use: No Preferred Language: Syriac Communication Ability: Effective 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 Beliefs That Will Affect Care: None Current Living Situation: Other Current Living Situation Comment: off campus housing How many Children do You have: 0 Feels Safe at Home: Yes Assistive Devices: None Review of Systems A total of 10 systems reviewed and were otherwise negative Physical Exam Vital Signs Vital Signs - 24 hr 04/16/21 03:26 04/16/21 05:23 04/16/21 05:25 Temperature 37.2 C Temperature Source Temporal Artery Scan Pulse Rate 105 H 100 H Pulse Rate [Finger] 96 H Respiratory Rate 16 Respiratory Effort / Characteristics Non-Labored Spontaneous Respiratory Depth Normal Blood Pressure 139/67 Blood Pressure [Left Arm] 137/73 Blood Pressure Mean 91 Blood Pressure Mean [Left Arm] 94 Blood Pressure Position [Left Arm] Sitting Pulse Oximetry 97 97 97 Oxygen Delivery Method Room Air Room Air Room Air Sepsis Recent Fever Within 48 Hours No Sepsis New/Unexplained Change in Mental Status No Sepsis Action Taken by Nursing No Action Required VITALS: Vitals are noted on the nurse's note and reviewed by myself. Vital signs stable. GENERAL: Well-developed, well-nourished, male, who is in no acute distress and resting comfortably. Patient is cooperative with the examination. HEAD: Normocephalic atraumatic. HEART: Regular rate and rhythm without murmurs gallops or rubs. LUNGS: Clear to auscultation bilaterally without wheezes, rales or rhonchi. No retractions or accessory muscle use. ABDOMEN: Positive normal bowel sounds x 4. Soft, nontender, without masses or organomegaly. No guarding or rebound tenderness. MUSCULOSKELETAL: No muscle atrophy, erythema, or edema noted. No tenderness to palpation. NEURO: Patient was alert and oriented to person place and time. CN II through XII grossly intact. Course Administered Medications Discontinued Medications Potassium Chloride (K Nasim / Wtr) 10 meq in 100 mls @ 100 mls/hr IV ONE ONE; P rotocol Stop: 04/16/21 06:34 Last Infusion: 04/16/21 06:52 Dose: 0 mls/hr Documented by: [id number] Admin: 04/16/21 05:51 Dose: 100 mls/hr Documented by: [id number] Potassium Chloride (Potassium Chloride Crtab 20 Meq Tabcr) 40 meq PO NOW STA Stop: 04/16/21 05:36 Last Admin: 04/16/21 05:51 Dose: 40 meq Documented by: [id number] Medical Decision Making Differential Diagnosis Differential includes acute coronary syndrome, myocardial infarction, CVA, TIA, anemia, infection, pneumonia, UTI, pyelonephritis, poor nutrition, dehydration, electrolyte disturbance,hypoglycemia. Laboratory Data Result diagrams: 04/16/21 04:32 04/16/21 04:32 Lab Results 04/16/21 04/16/21 04/16/21 Range/Units 04:16 04:32 04:32 WBC 6.45 (4.8-10.8) K/uL RBC 5.74 (4.7-6.1) M/uL Hgb 16.5 (14.0-18.0) g/dL Hct 48.6 (42-52) % MCV 84.7 (80-100) fL MCH 28.7 (25-34) pg MCHC 34.0 (32-36) g/dL RDW Std Deviation 37.8 (36.4-46.3) fL RDW Coeff of Rory 12.2 (11.5-14.5) % Plt Count 346 (130-400) K/uL MPV 10.5 H (7.4-10.4) fL Immature Gran % (Auto) 0.2 % Neut % (Auto) 63.9 % Lymph % (Auto) 25.7 % Mesa % (Auto) 7.8 % Eos % (Auto) 2.2 % Baso % (Auto) 0.2 % Neut # (Auto) 4.13 (1.4-6.5) K/uL Lymph # (Auto) 1.66 (1.2-3.4) K/uL Mesa # (Auto) 0.50 (0.11-0.59) K/uL Eos # (Auto) 0.14 (0-0.5) K/uL Baso # (Auto) 0.01 (0-0.2) K/uL Immature Gran # (Auto) 0.01 (0.00-0.02) K/uL ESR 12 (0-15) mm/hr PT (9.0-12.0) Seconds INR (0.9-1.1) APTT (21.0-31.0) Seconds PTT Ratio Sodium (136-145) mmol/L Potassium (3.5-5.1) mmol/L Chloride (98-107) mmol/L Carbon Dioxide (21-32) mmol/L Anion Gap (3-11) BUN (7-18) mg/dl Creatinine (0.6-1.4) mg/dl Est Cr Clr Drug Dosing ml/min Est GFR ( Amer) ml/min Est GFR (Non-Af Amer) ml/min BUN/Creatinine Ratio (10-20) Glucose (70-99) mg/dl Calcium (8.5-10.1) mg/dl Phosphorus (2.5-4.9) mg/dl Magnesium (1.8-2.4) mg/dl Total Bilirubin (0.2-1) mg/dl AST (15-37) U/L ALT (12-78) Alkaline Phosphatase (45-117) U/L Total Creatine Kinase (39-308) U/L Troponin I (0-0.045) ng/ml C-Reactive Protein (0-0.29) mg/dl Total Protein (6.4-8.2) gm/dl Albumin (3.4-5.0) gm/dl Globulin (2.5-4.0) gm/dl Albumin/Globulin Ratio (0.9-2) TSH (0.300-4.500) uIu/ml Free T4 (0.8-1.6) ng/dl Ethyl Alcohol mg/dL (0-3) mg/dl Lyme Disease IgG Ab (Negative) Lyme Disease IgM Ab (Negative) SARS-CoV-2, RNA, NAAT NEGATIVE (NEGATIVE) 04/16/21 04/16/21 04/16/21 Range/Units 04:32 04:32 04:32 WBC (4.8-10.8) K/uL RBC (4.7-6.1) M/uL Hgb (14.0-18.0) g/dL Hct (42-52) % MCV (80-100) fL MCH (25-34) pg MCHC (32-36) g/dL RDW Std Deviation (36.4-46.3) fL RDW Coeff of Rory (11.5-14.5) % Plt Count (130-400) K/uL MPV (7.4-10.4) fL Immature Gran % (Auto) % Neut % (Auto) % Lymph % (Auto) % Mesa % (Auto) % Eos % (Auto) % Baso % (Auto) % Neut # (Auto) (1.4-6.5) K/uL Lymph # (Auto) (1.2-3.4) K/uL Mesa # (Auto) (0.11-0.59) K/uL Eos # (Auto) (0-0.5) K/uL Baso # (Auto) (0-0.2) K/uL Immature Gran # (Auto) (0.00-0.02) K/uL ESR (0-15) mm/hr PT 10.1 (9.0-12.0) Seconds INR 1.0 (0.9-1.1) APTT 28.0 (21.0-31.0) Seconds PTT Ratio 1.1 Sodium 142 (136-145) mmol/L Potassium 2.0 L* (3.5-5.1) mmol/L Chloride 110 H (98-107) mmol/L Carbon Dioxide 26 (21-32) mmol/L Anion Gap 6.0 (3-11) BUN 13 (7-18) mg/dl Creatinine 0.66 (0.6-1.4) mg/dl Est Cr Clr Drug Dosing 188.2 ml/min Est GFR ( Amer) > 150.0 ml/min Est GFR (Non-Af Amer) 138.2 ml/min BUN/Creatinine Ratio 19.2 (10-20) Glucose 130 H (70-99) mg/dl Calcium 9.5 (8.5-10.1) mg/dl Phosphorus 2.1 L (2.5-4.9) mg/dl Magnesium 2.0 (1.8-2.4) mg/dl Total Bilirubin 0.3 (0.2-1) mg/dl AST 22 (15-37) U/L ALT 72 (12-78) Alkaline Phosphatase 67 (45-117) U/L Total Creatine Kinase 471 H (39-308) U/L Troponin I < 0.015 (0-0.045) ng/ml C-Reactive Protein 0.34 H (0-0.29) mg/dl Total Protein 7.6 (6.4-8.2) gm/dl Albumin 3.7 (3.4-5.0) gm/dl Globulin 3.9 (2.5-4.0) gm/dl Albumin/Globulin Ratio 0.9 (0.9-2) TSH < 0.005 L (0.300-4.500) uIu/ml Free T4 2.28 H (0.8-1.6) ng/dl Ethyl Alcohol mg/dL < 3.0 (0-3) mg/dl Lyme Disease IgG Ab (Negative) Lyme Disease IgM Ab (Negative) SARS-CoV-2, RNA, NAAT (NEGATIVE) 04/16/21 Range/Units 04:32 WBC (4.8-10.8) K/uL RBC (4.7-6.1) M/uL Hgb (14.0-18.0) g/dL Hct (42-52) % MCV (80-100) fL MCH (25-34) pg MCHC (32-36) g/dL RDW Std Deviation (36.4-46.3) fL RDW Coeff of Rory (11.5-14.5) % Plt Count (130-400) K/uL MPV (7.4-10.4) fL Immature Gran % (Auto) % Neut % (Auto) % Lymph % (Auto) % Mesa % (Auto) % Eos % (Auto) % Baso % (Auto) % Neut # (Auto) (1.4-6.5) K/uL Lymph # (Auto) (1.2-3.4) K/uL Mesa # (Auto) (0.11-0.59) K/uL Eos # (Auto) (0-0.5) K/uL Baso # (Auto) (0-0.2) K/uL Immature Gran # (Auto) (0.00-0.02) K/uL ESR (0-15) mm/hr PT (9.0-12.0) Seconds INR (0.9-1.1) APTT (21.0-31.0) Seconds PTT Ratio Sodium (136-145) mmol/L Potassium (3.5-5.1) mmol/L Chloride (98-107) mmol/L Carbon Dioxide (21-32) mmol/L Anion Gap (3-11) BUN (7-18) mg/dl Creatinine (0.6-1.4) mg/dl Est Cr Clr Drug Dosing ml/min Est GFR ( Amer) ml/min Est GFR (Non-Af Amer) ml/min BUN/Creatinine Ratio (10-20) Glucose (70-99) mg/dl Calcium (8.5-10.1) mg/dl Phosphorus (2.5-4.9) mg/dl Magnesium (1.8-2.4) mg/dl Total Bilirubin (0.2-1) mg/dl AST (15-37) U/L ALT (12-78) Alkaline Phosphatase (45-117) U/L Total Creatine Kinase (39-308) U/L Troponin I (0-0.045) ng/ml C-Reactive Protein (0-0.29) mg/dl Total Protein (6.4-8.2) gm/dl Albumin (3.4-5.0) gm/dl Globulin (2.5-4.0) gm/dl Albumin/Globulin Ratio (0.9-2) TSH (0.300-4.500) uIu/ml Free T4 (0.8-1.6) ng/dl Ethyl Alcohol mg/dL (0-3) mg/dl Lyme Disease IgG Ab Negative (Negative) Lyme Disease IgM Ab Negative (Negative) SARS-CoV-2, RNA, NAAT (NEGATIVE) ECG Data Attestation: I personally reviewed and interpreted this ECG as follows: Indication: + weakness Additional Comments: Normal sinus rhythm @93 bpm Incomplete right bundle branch block Lateral infarct , age undetermined Abnormal ECG When compared with ECG of 05-APR-2021 09:54, Lateral infarct is now Present ST no longer depressed in Inferior leads QT has shortened MDM Narrative Physical exam and history were performed. Nursing notes, EMR, and Medication List were personally reviewed. Patient appears to have weakness of his right leg. He does have recent diagnosis of thyrotoxic periodic paralysis, and did exercise 2 days ago. IV access was established and labs were obtained. An order was placed for continuous cardiac monitoring. The monitor shows a rate of 96 with normal sinus rhythm. The patient's blood work is as above and was reviewed. He does not have a significantly elevated white blood cell count, gross anemia, or significant bandemia. Potassium is notably low at 2.0. TSH is essentially 0 with an elevated T4. The patient was given 40 mEq potassium p.o. as well as 10 mEq IV. Covid was performed and negative.Magnesium is normal at 2. Phosphorus is slightly low at 2.1. CK is 471. Lyme is negative. Overall the patient does not appear well for discharge home. He does have a very low potassium, likely from his thyroid disease. The case was discussed with the on-call hospitalist team who agreed to evaluate the patient here in the ER. Please see their dictation for further patient course, plan, disposition. The chart was completed utilizing [employer] Speech Voice Recognition Software. Grammatical errors, random word insertions, pronoun errors, and incomplete sentences are an occasional consequence of this system due to software limitations, ambient noise, and hardware issues. Any formal questions or concerns about the content, text, or information contained within the body of this dictation should be directly addressed to the provider for clarification. . Impression & Plan Hypokalemia, Weakness, Abnormal TSH Discharge Plan Visit Data Chief Complaint: Leg Weakness, Bilateral Stated Complaint: LEGS NOT WORKING RIGHT ED Provider: Roxana Conteh ED Midlevel Provider: Sanju Chowdhury Discharge Problem: Hypokalemia, Weakness, Abnormal TSH Patient Disposition: Being Evaluated by Hospitalist Forms Stand Alone Forms: [facility] Prescriptions Prescriptions: No Action methimazole 10 mg tablet 20 mg PO BID Qty: 90 RF: 3 propranolol 20 mg Tablet 40 mg PO DAILY Qty: 30 RF: 0 Referrals Referrals: [facility] [Primary Care Provider] -
--- NOTE | 2021-04-16 09:09 | History & Physical Report ---
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 At prior admission had similar symptoms, symptoms resolved with potassium repletion and patient was discharged to follow-up with PCP and endocrinology. On admitting labs potassium 2.0, TSH undetectable, T4 interval decrease from 3.3-2.28, chest x-ray with no acute process, CT head normal, and EKG with normal sinus rhythm Weakness 2/2 thyrotoxic periodic paralysis with hypokalemia Potassium 2.0 on admission, TSH undetectably low, free T4 interval decrease from prior from 3.3-2.28 not yet normalized - EKG: reviewed, nsr, normal QT, no ST changes, ?uwave Episode of running/jogging preceded symptoms Received 40 KCl oral and 10 M EQ rider x1 in ER We will continue with 20 M EQ x2 repletion, BMP checked every 4 hours 90 mEq total daily dose max recommended less persistently and severely hypokalemic to demise risk of rebound hyperkalemia w/ TPP - Admit to medical telemetry - No hx of cardiac disease Continue methimazole 10 mg 20 mg twice daily Continue propranolol 40 mg daily Symptoms starting to improve on midmorning reassessment, continue to follow potassium. Discussed with patient that he must avoid strenuous exercise at this time and while his TSH/T4 are returning to normal. Likely that this precipitated acute episode. 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 At prior admission had similar symptoms, symptoms resolved with potassium repletion and patient was discharged to follow-up with PCP and endocrinology. On admitting labs potassium 2.0, TSH undetectable, T4 interval decrease from 3.3-2.28, chest x-ray with no acute process, CT head normal, and EKG with normal sinus rhythm Meagan reports yesterday he became unable to move his legs. He can feel them normally but could not move them. Had a similar episode after [employer]. He notes he feels better with possium supplementation. Feels the weakness equally in both legs, some in the arms. No difficulty breathing, no shortness of breath. Has felt some palpitations/fast heart rate. No chest pain, no chest pressure. No nausea, vomiting or diarrhea. Eating and drinking normally up until today. Normal BMs. 2 days ago (evening prior to sx onset) went for a run for a little over 2-3km. After he finished running felt sore in the legs which progressed to weakness overnight and into the next day. Medical History: Reviewed Medications: Reviewed. Last took medications yesterday. Surgical History: Reviewed. Allergies: Reviewed Social History: No tobacco product use, rare alcohol social use ~1ce a month and 1-2 in a sitting. No recreational drug use. Student at [employer], from [employer]. Fhx: Thinks his mom had similar problems before he was born. Otherwise denies fhx of medical problems in 1st degree relatives but notes 'not really sure exactly.' Code Status: Full Code Allergies Allergy/AdvReac Type Severity Reaction Status Date / Time No Known Allergies Allergy Unverified 04/16/21 07:36 Home Medications Medication Instructions Recorded Confirmed Type methimazole 10 mg tablet 20 mg PO BID #90 tab 04/08/21 04/16/21 Rx propranolol 20 mg tablet 40 mg PO QAM 04/16/21 04/16/21 History Past Med/Surg History Medical History Abnormal TSH Hypokalemia No pertinent past medical history Thyrotoxic periodic paralysis Surgical History No pertinent past surgical history Social History Smoking Status: Never smoker Hx Alcohol Use: Yes Alcohol type: beer Hx Substance Use: No Preferred Language: Ghanaian Communication Ability: Effective 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 NAD. Cooperative. HEENT: Atraumatic, normocephalic. Pulm: CTAB A&P. -wheezes, -rales, -rhonchi. Symmetrical chest rise. No increase work of breathing. No respiratory distress. Cardiac: RRR, -mrg. Radial pulses intact and symmetrical. Abdominal: Nontender, nondistended, soft. BS present. CRANIAL NERVES: II: Pupils equal and reactive, no relative afferent pupillary defect, no VF cuts III, IV, : EOM intact, no gaze preference or deviation, no nystagmus. V: normal sensation in V1, V2, and V3 segments bilaterally VII: no asymmetry, no nasolabial fold flattening VIII: normal hearing to speech IX, X: normal palatal elevation, no uvular deviation XI: 5/5 head turn and 5/5 shoulder shrug bilaterally XII: midline tongue protrusion Initial assessment: On initial assessment patient with great difficulty initiating antigravity hip flexion, midmorning reassessment strength as below: MOTOR: RUE: 4+/5 Shoulder internal rotation, external rotation, flexion, extension, abduction, adduction 4+/5 Elbow flexion/extension, wrist flexion/extension 4+/5 kitchen food assembler strength, finger flexion/extension, interosseus LUE: 4+/5 Shoulder internal rotation, external rotation, flexion, extension, abduction, adduction 4+/5 Elbow flexion/extension, wrist flexion/extension 4+/5 kitchen food assembler strength, finger flexion/extension, interosseus RLE: 4+/5 to hip flexion, 5/5extension, 5/5 knee flexion/extension, ankle dorsiflexion/plantarflexion LLE: 4+/5 to hip flexion 5/5 extension, 5/5 knee flexion/extension, ankle dorsiflexion/plantarflexion REFLEXES: 2/4 patellar, bicepts, and achilles DTR without asymmetry. Bilateral flexor planter response, no Quintana's, no clonus SENSORY: Normal to touch temp in upper and lower extremities without deficit or asymmetry COORD: Normal finger to nose and heel to bond, no tremor, no dysmetria Results & Data Results & Data ([facility]) Vital Signs (Past 12 Hours) Vital Signs Temp Pulse Pulse Resp BP BP Pulse Ox 04/16/21 07:44 105 H 27 H 133/55 L 96 04/16/21 05:25 96 H 137/73 97 04/16/21 05:23 100 H 97 04/16/21 03:26 37.2 C 105 H 16 139/67 97 PG Care Time/CCT Total # of Minutes Spent Total Time Spent with Patient: Total time spent is greater than 50% in coordination of care (as documented) at patient's floor/unit and/or counseling patient: Coding Level of Care Code 31915 Initial Inpt Care Lvl 2 Diagnoses Thyrotoxic periodic paralysis G72.3 Hypokalemia E87.6 Hyperthyroidism determined by thyroid function test E05.90; R94.6
[2021-04-16] MEDS: LACTATED RINGER'S 1,000 ML IV SCH ×2 (10:15→21:22)
--- NOTE | 2021-04-16 10:29 | Electrocardiogram Report ---
Test Reason : Blood Pressure : / mmHG Vent. Rate : 093 BPM Atrial Rate : 093 BPM P-R Int : 176 ms QRS Dur : 106 ms QT Int : 364 ms P-R-T Axes : 000 077 011 degrees QTc Int : 452 ms Normal sinus rhythm Incomplete right bundle branch block Lateral infarct , age undetermined Abnormal ECG When compared with ECG of 05-APR-2021 09:54, Lateral infarct is now Present ST no longer depressed in Inferior leads QT has shortened Confirmed by Hieu Moody ([id number]) on 04/16/2021 10:29:07 AM Referred By: REFERRED SELF Confirmed By:Hieu Moody
[2021-04-16] MEDS ORDERED: POTASSIUM CHLORIDE CRTAB 20 MEQ TABCR PO SCH (12:00)
[2021-04-16] MEDS ORDERED: ACETAMINOPHEN 325 MG TAB PO PRN (12:10)
[2021-04-16 12:20] LABS: BUN Creatinine Ratio 20.2 (10-20); Blood Urea Nitrogen 12 mg/dl (7-18); Calcium 8.9 mg/dl (8.5-10.1); Carbon Dioxide 26 mmol/L (21-32); Chloride 112 mmol/L (98-107); Est GFR (African American) > 150.0 ml/min; Est GFR (Non-African American) 143.7 ml/min; Glucose 100 mg/dl (70-99); Potassium 5.1 mmol/L (3.5-5.1); Sodium 141 mmol/L (136-145)
[2021-04-16 12:40] LABS: Basophils # (auto) 0.01 K/uL (0-0.2); Basophils % (auto) 0.1 %; Eosinophils # (auto) 0.16 K/uL (0-0.5); Eosinophils % (auto) 2.1 %; Hematocrit (blood only) 43.9 % (42-52); Lymphocytes # (auto) 2.21 K/uL (1.2-3.4); Lymphocytes % (auto) 28.5 %; Mean Corpuscular Hemoglobin 28.6 pg (25-34); Mean Corpuscular Hgb Conc 34.2 g/dL (32-36); Mean Corpuscular Volume 83.8 fL (80-100); Mean Platelet Volume 10.1 fL (7.4-10.4); Monocytes # (auto) 0.65 K/uL (0.11-0.59); Monocytes % (auto) 8.4 %; Neutrophils # (auto) 4.73 K/uL (1.4-6.5); Neutrophils % (auto) 60.9 %; Platelet Count 327 K/uL (130-400); RDW Standard Deviation 36.8 fL (36.4-46.3); Red Blood Count 5.24 M/uL (4.7-6.1); White Blood Count 7.76 K/uL (4.8-10.8)
[2021-04-16] MEDS: methIMAzole 5 MG TABLET PO SCH ×2 (13:00→21:24)
[2021-04-16] MEDS: PROPRANOLOL HCL 20 MG TAB PO SCH (13:02)
[2021-04-16 16:49] LABS: BUN Creatinine Ratio 13.5 (10-20); Calcium 9.1 mg/dl (8.5-10.1); Creatinine Clr Calc Pharmacy 152.8 ml/min; Est GFR (Non-African American) 127.7 ml/min; Potassium 4.5 mmol/L (3.5-5.1)
[2021-04-16 20:53] LABS: BUN Creatinine Ratio 12.5 (10-20); Calcium 8.9 mg/dl (8.5-10.1); Creatinine Clr Calc Pharmacy 119.8 ml/min; Est GFR (African American) 121.2 ml/min; Est GFR (Non-African American) 104.6 ml/min; Potassium 4.4 mmol/L (3.5-5.1)
[2021-04-17 08:03] LABS: BUN Creatinine Ratio 19.3 (10-20); Blood Urea Nitrogen 10 mg/dl (7-18); Calcium 9.7 mg/dl (8.5-10.1); Carbon Dioxide 24 mmol/L (21-32); Chloride 106 mmol/L (98-107); Creatine Kinase 258 U/L (39-308); Creatinine Clr Calc Pharmacy 226.1 ml/min; Est GFR (African American) > 150.0 ml/min; Est GFR (Non-African American) > 150.0 ml/min; Glucose 79 mg/dl (70-99); Sodium 138 mmol/L (136-145)
[2021-04-17] MEDS: PROPRANOLOL HCL 20 MG TAB PO SCH (08:44)
[2021-04-17] MEDS: methIMAzole 5 MG TABLET PO SCH (08:44)
--- NOTE | 2021-04-17 12:12 | Discharge Summary ---
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 At prior admission had similar symptoms, symptoms resolved with potassium repletion and patient was discharged to follow-up with PCP and endocrinology. On admitting labs potassium 2.0, TSH undetectable, T4 interval decrease from 3.3-2.28, chest x-ray with no acute process, CT head normal, and EKG with normal sinus rhythm Meagan reports yesterday he became unable to move his legs. He can feel them normally but could not move them. Had a similar episode after [employer]. He notes he feels better with possium supplementation. Feels the weakness equally in both legs, some in the arms. No difficulty breathing, no shortness of breath. Has felt some palpitations/fast heart rate. No chest pain, no chest pressure. No nausea, vomiting or diarrhea. Eating and drinking normally up until today. Normal BMs. 2 days ago (evening prior to sx onset) went for a run for a little over 2-3km. After he finished running felt sore in the legs which progressed to weakness overnight and into the next day. Principal Diagnosis Severe hypokalemia/thyrotoxic periodic paralysis Discharge Exam gen - NAD mouth - MMM neck - left lobe of thyroid > right lobe of thyroid, nontender heart - RRR, s1 s2, no murmur lungs - CTA b/l abd - soft NT ND BS+ ext - no edema, pulses 2+ b/l neuro - strength 5/5 x 4 extremities Discharge Data Allergies Allergy/AdvReac Type Severity Reaction Status Date / Time No Known Allergies Allergy Unverified 04/16/21 07:36 Hospital Course (1) Thyrotoxic periodic paralysis: Patient presented with significant weakness due to severe hypokalemia. K level was 2 at time of admission. He received IV and PO supplementation while here, and by hospital day #2 his K level was normal at 4. The patient's heavy exercise over a 2-day period precipitated this event. He received both oral and written instructions as to which activities to avoid (prolonged fasting, heavy exercise, diet high in carbohydrates, etc). He was counseled that he is at risk of recurrent episodes of hypokalemia/periodic paralysis UNTIL HIS HYPERTHYROIDISM IS CORRECTED (which will take weeks/months). I asked him to have repeat blood work (BMP, etc) within 1 week of discharge to ensure his potassium is normal. Telemetry was normal while hospitalized, and he remained hemodynamically stable. (2) Hypokalemia: 2nd to thyrotoxic periodic paralysis - see #1 above. Admission K level = 2. Discharge K level = 4. The patient has blood work orders for 1 week post-discharge (BMP, etc). (3) Hyperthyroidism determined by thyroid function test: Hospitalized 04/05 to 04/06 at [facility] for severe weakness due to profound hypokalemia and severe hypophosphatemia. During that stay it was discovered that the patient had new-onset hyperthyroidism. It was felt his hypokalemia was due to thyrotoxic periodic paralysis in the setting of hyperthyroidism. He was initiated on methimazole 20mg BID and propranolol 40mg qam. Although TSH is still undetectable (as expected) his free T4 has downtrended from 3.2 to 2.2. He will continue the above medications, and has follow-up with Dr Karson Foote - [facility] endocrinology - on April 28, 2021. Total Time Total Time Spent Total Time Spent (In Minutes): 25 Discharge Plan Discharge Items Patient Disposition: Home - Self-Care Reason For Visit: Low potassium, THYROTOXIC PERIODIC PARALYSIS Discharge Diagnosis: Very low potassium due to thyrotoxic periodic paralysis - resolved. Potassium now normal. The "thyrotoxic periodic paralysis" is due to your hyperthyroidism. Activity: As commented below Activity Comment: NO STRENUOUS ACTIVITIES (NO RUNNING, BIKING, SWIMMING, OR GOING TO THE GYM) Lifting: No more than 10 pounds Exercise/Sports: Wait until after follow-up appointment Driving/Machine Use: No limitations Non-emergency contact: Primary Care Provider and Specialist Call non-emergency contact if: you have any medication questions, your symptoms worsen and you have a fever Follow-up/Referrals: aKrson Foote MD [Physician] - 04/28/21 (KEEP ENDOCRINOLOGY APPOINTMENT ON THIS DATE FOR YOUR HYPERTHYROIDISM.) [facility] [Primary Care Provider] - Diet: Regular Addtl Attending Provider Instructions: Mr. Perez, You were hospitalized for weakness due to low potassium levels. The reason your potassium levels got low was due to "thyrotoxic periodic paralysis." This is a condition brought on by heavy exercise, fasting, eating a meal heavy in sugars, etc (see handout that I gave you). The periodic paralysis condition is associated with your hyperthyroidism. Until your thyroid gland is fully regulated please avoid strenuous exercise, prolonged fasting (not eating for 10-12+ hours), extreme cold weather, etc. As long as you avoid these activities your potassium will likely stay in normal range. The "thyrotoxic periodic paralysis" condition will go away completely in the future once the thyroid gland is back to normal. Your potassium level today, 04/17, is normal at 4. Recommendations - 1. You have blood work ordered. Please come to the main entrance at [facility] on Monday morning, 04/21/21, to have the blood work done. Once it is complete you can leave and we will call you with the results. 2. Keep your appointment with the thyroid doctor on April 28 as scheduled (Dr Foote). 3. Continue your thyroid medications as previous - * methimazole 20mg twice daily * propranolol 40mg once daily 4. Again avoid strenuous activities - jogging/running, swimming, biking, going to the gym to lift weights, etc. Return to the [facility] emergency room if - * you have extreme weakness of the legs or arms * you have difficulty walking * you have severe cramps of the legs or arms * any other concerns Pending Studies at Discharge: No Stand-Alone Forms: [facility] Medications and DC Order Prescriptions: Continued methimazole 10 mg tablet 20 mg PO BID Qty: 90 RF: 3 propranolol 20 mg tablet 40 mg PO QAM RF: 0 Discharge Orders: Discharge Order (Routine); Ordered 04/17/21 Ordered By: Ruben Ayoub Admission Data Admit Date/Time: 04/16/21 09:32 Attending Provider: Ruben Ayoub Admit Provider: Segun Paul Primary Care Provider: [facility] Other Providers: Segun Paul Other Interventions: Discharge Summary Assessment (RN) Last Done: 04/17/21 12:07 Coding Level of Care Code D/C DAY MANAGEMENT <30 MINS Diagnoses Thyrotoxic periodic paralysis G72.3 Hypokalemia E87.6 Hyperthyroidism determined by thyroid function test E05.90; R94.6
== END 2021-04-17 13:04 | disposition home or self-care (01) | DRG 93 ==
LOC: ED 03:22 → EDINP 09:32 → SUATTDRO 09:32 → EDINP 09:50 → 2N 16:10

== ENCOUNTER 2021-05-02 08:20 | Inpatient (IN) ==
[2021-05-02] MEDS ORDERED: LACTATED RINGER'S 1,000 ML IV ONE (08:44)
--- NOTE | 2021-05-02 08:49 | Emergency Department Note ---
Impression & Plan Hypokalemia, Thyrotoxic periodic paralysis, Hyperthyroidism ED Provider Note Provider: Donis Valle MD DATE OF SERVICE: 05/02/2021 CHIEF COMPLAINT: Weakness HISTORY OF PRESENT ILLNESS: Patient is a 20-year-old gentleman history of hyperthyroidism/Graves' disease as well as thyrotoxic periodic paralysis presenting here today via ambulance reporting weakness. Patient again with significant past medical history of endocrine issues related to the thyroid. Episode around and with low potassium causing generalized weakness. Patient states similar complaint today. Reports weakness began when he woke around 4 AM this morning. Weakness in the arms and legs but no numbness. No headache. No falls. States his heart feels like it is beating a little bit faster but denies any significant shortness of breath or abdominal pain. Patient states currently on methimazole only. Patient has been following with endocrinology. He denies recent illness or cold symptoms. He denies overexertion at this time or lack of sleep. REVIEW OF SYSTEMS: A total of 10 review of systems was obtained and negative except as stated above in the HPI. PAST MEDICAL HISTORY: As noted above MEDICATIONS: Methimazole SOCIAL HISTORY: Originally from [place], student studying neuroscience at [employer] PHYSICAL EXAM: GENERAL: alert and oriented in no acute distress on stretcher Head: normocephalic and atraumatic EYES: No injection, discharge or icterus. NECK: Trachea midline. LUNGS: Airway patent. No retractions without tachypnea HEART: Regular rate and rhythm. Good distal peripheral perfusion. ABDOMEN: Soft and non-tender, without guarding or rebound. SKIN: Acyanotic, warm, dry, without rashes EXTREMITIES: Without swelling, tenderness or deformity NEUROLOGICAL: No focal deficits moving all extremities No aphasia. No facial droop or slurred speech. Mildly decreased 4 out of 5 strength and tone in the extremities. Sensation to gross touch normal. EK bpm sinus rhythm with first-degree AV block. Incomplete right bundle branch block. No PVC or PAC noted. No acute ST segment elevation or depression. CONTINUOUS CARDIAC MONITORING: was ordered and showed a heart rate of bpm in Patient's laboratory studies and imaging reviewed. Differential includes Infection, dehydration, metabolic abnormality, hypo/hyperglycemia, electrolyte disturbance, anemia, hypoxia, cardiac sources, intracerebral event, toxicologic, neurologic, as well as other pathologies. IMPRESSION/MEDICAL DECISION MAKING: Patient with significant history. Reports it feels similar to previous episodes of hypokalemia exacerbating his underlying thyroid disorder. Lab/electrolytes were completed. EKG and basic labs obtained. Does not appear to be in SVT at this time. Initial given a small bolus of lactated Ringer's pending formal electrolytes. No significant focal deficits concerning for stroke or focal lesion. Patient with onset mainly this morning and does not seem consistent with GBS. No sensation changes reported. CBC without significant anemia or leukocytosis. Negative Covid. Chemistries returned with normal sodium but significant hypokalemia of 2.0. Creatinine normal. Magnesium 1.9. Slight AST and ALT elevation of unclear significance. EKG does show some slight MN interval increase. Given oral and IV potassium supplementation. This is likely etiology of his underlying issue peer discussed the patient further observation here given the significant hypokalemia for improvement of his condition. He was in agreement. Hospitalist was consulted. DIAGNOSIS: Hypokalemia, thyrotoxic periodic paralysis DISPOSITION: Hospitalist will evaluate Patient was agreeable with this plan. Past Med/Surg History Medical History Graves disease Hyperthyroidism Thyrotoxic periodic paralysis Surgical History No pertinent past surgical history Social History Smoking Status: Never smoker Hx Alcohol Use: Yes Alcohol type: beer Hx Substance Use: No Preferred Language: Persian Communication Ability: Effective Diffusion Operator Required: No Beliefs That Will Affect Care: None Current Living Situation: Other Current Living Situation Comment: off [place] housing How many Children do You have: 0 Feels Safe at Home: Yes Assistive Devices: None Allergies Allergies Allergy/AdvReac Type Severity Reaction Status Date / Time No Known Allergies Allergy Verified 05/02/21 08:43 Home Meds Home Medications Medication Instructions Recorded Confirmed propranolol 20 mg tablet 40 mg PO QAM 04/16/21 05/02/21 Previous Rx's Medication Instructions Recorded methimazole 10 mg tablet 20 mg PO BID #90 tab 04/08/21 Results & Data (ED) Vital Signs Vital Signs - 24 hr 05/02/21 08:27 05/02/21 09:03 05/02/21 10:27 Temperature 37.4 C Temperature Source Oral Pulse Rate 97 H Pulse Rate [Apical] 93 H Respiratory Rate 18 18 Blood Pressure 140/81 Blood Pressure [Left Arm] 125/71 Blood Pressure Mean 100 Blood Pressure Mean [Left Arm] 89 Pulse Oximetry 97 97 97 Oxygen Delivery Method Room Air Room Air Room Air Sepsis Recent Fever Within 48 Hours No Sepsis New/Unexplained Change in Mental Status No Sepsis Action Taken by Nursing No Action Required Laboratory Data Result diagrams: 05/02/21 08:50 05/02/21 14:54 Lab Results 05/02/21 05/02/21 05/02/21 Range/Units 08:50 08:50 08:58 WBC 5.23 (4.8-10.8) K/uL RBC 5.48 (4.7-6.1) M/uL Hgb 15.7 (14.0-18.0) g/dL Hct 46.0 (42-52) % MCV 83.9 (80-100) fL MCH 28.6 (25-34) pg MCHC 34.1 (32-36) g/dL RDW Std Deviation 38.3 (36.4-46.3) fL RDW Coeff of Rory 12.7 (11.5-14.5) % Plt Count 315 (130-400) K/uL MPV 9.8 (7.4-10.4) fL Immature Gran % (Auto) 0.0 % Neut % (Auto) 67.1 % Lymph % (Auto) 26.0 % [place] % (Auto) 5.4 % Eos % (Auto) 1.3 % Baso % (Auto) 0.2 % Neut # (Auto) 3.51 (1.4-6.5) K/uL Lymph # (Auto) 1.36 (1.2-3.4) K/uL [place] # (Auto) 0.28 (0.11-0.59) K/uL Eos # (Auto) 0.07 (0-0.5) K/uL Baso # (Auto) 0.01 (0-0.2) K/uL Immature Gran # (Auto) 0.00 (0.00-0.02) K/uL Sodium 141 (136-145) mmol/L Potassium 2.0 L* (3.5-5.1) mmol/L Chloride 112 H (98-107) mmol/L Carbon Dioxide 24 (21-32) mmol/L Anion Gap 5.0 (3-11) BUN 13 (7-18) mg/dl Creatinine 0.65 (0.6-1.4) mg/dl Est Cr Clr Drug Dosing Not Reportable Est GFR ( Amer) > 150.0 ml/min Est GFR (Non-Af Amer) 139.1 ml/min BUN/Creatinine Ratio 19.5 (10-20) Glucose 131 H (70-99) mg/dl Calcium 8.5 (8.5-10.1) mg/dl Magnesium 1.9 (1.8-2.4) mg/dl Total Bilirubin 0.2 (0.2-1) mg/dl AST 40 H (15-37) U/L ALT 131 H (12-78) Alkaline Phosphatase 63 (45-117) U/L Total Protein 7.1 (6.4-8.2) gm/dl Albumin 3.5 (3.4-5.0) gm/dl Globulin 3.6 (2.5-4.0) gm/dl Albumin/Globulin Ratio 1.0 (0.9-2) TSH < 0.005 L (0.300-4.500) uIu/ml Free T4 1.13 (0.8-1.6) ng/dl Specimen Hemolysis SARS-CoV-2, RNA, NAAT NEGATIVE (NEGATIVE) Administered Medications Discontinued Medications Lactated Ringer's (Lr) 1,000 mls @ 999 mls/hr IV .Q1H1M ONE Stop: 05/02/21 09:44 Last Infusion: 05/02/21 10:05 Dose: 0 mls/hr Documented by: [id number] Admin: 05/02/21 09:02 Dose: 999 mls/hr Documented by: [id number] Potassium Chloride (K Nasim / Wtr) 10 meq in 100 mls @ 100 mls/hr IV Q1H MARICRUZ; Protocol Stop: 05/02/21 11:29 Last Infusion: 05/02/21 11:39 Dose: 0 mls/hr Documented by: [id number] Admin: 05/02/21 10:38 Dose: 100 mls/hr Documented by: [id number] Infusion: 05/02/21 10:37 Dose: 0 mls/hr Documented by: [id number] Admin: 05/02/21 09:32 Dose: 100 mls/hr Documented by: [id number] Magnesium Sulfate/Dextrose (Magnesium Sulfate / D5w) 1 gm in 100 mls @ 50 mls/hr IV ONE ONE Stop: 05/02/21 13:55 Last Infusion: 05/02/21 14:52 Dose: 0 mls/hr Documented by: [id number] Admin: 05/02/21 12:52 Dose: 50 mls/hr Documented by: [id number] Potassium Chloride (Potassium Chloride Crtab 20 Meq Tabcr) 40 meq PO NOW STA Stop: 05/02/21 09:25 Last Admin: 05/02/21 09:32 Dose: 40 meq Documented by: [id number] Discharge Plan Visit Data Chief Complaint: Illness Stated Complaint: TROUBLE MOVING LEGS & ARM ED Provider: Donis Valle Discharge Problem: Hypokalemia, Thyrotoxic periodic paralysis, Hyperthyroidism Patient Disposition: Admitted As Inpatient Discharge Instructions Interventions: ED Discharge Assessment Last Done: 05/02/21 14:43
[2021-05-02 08:58] LABS: Basophils # (auto) 0.01 K/uL (0-0.2); Basophils % (auto) 0.2 %; Eosinophils # (auto) 0.07 K/uL (0-0.5); Eosinophils % (auto) 1.3 %; Hemoglobin 15.7 g/dL (14.0-18.0); Lymphocytes # (auto) 1.36 K/uL (1.2-3.4); Mean Corpuscular Hemoglobin 28.6 pg (25-34); Mean Corpuscular Hgb Conc 34.1 g/dL (32-36); Mean Corpuscular Volume 83.9 fL (80-100); Mean Platelet Volume 9.8 fL (7.4-10.4); Monocytes # (auto) 0.28 K/uL (0.11-0.59); Monocytes % (auto) 5.4 %; Neutrophils # (auto) 3.51 K/uL (1.4-6.5); Neutrophils % (auto) 67.1 %; Platelet Count 315 K/uL (130-400); RDW Coefficient of Variation 12.7 % (11.5-14.5); RDW Standard Deviation 38.3 fL (36.4-46.3); Red Blood Count 5.48 M/uL (4.7-6.1); White Blood Count 5.23 K/uL (4.8-10.8)
[2021-05-02 09:23] LABS: Alanine Aminotransferase 131 (12-78); Albumin Level 3.5 gm/dl (3.4-5.0); Aspartate Aminotransferase 40 U/L (15-37); BUN Creatinine Ratio 19.5 (10-20); Blood Urea Nitrogen 13 mg/dl (7-18); Calcium 8.5 mg/dl (8.5-10.1); Carbon Dioxide 24 mmol/L (21-32); Chloride 112 mmol/L (98-107); Est GFR (African American) > 150.0 ml/min; Est GFR (Non-African American) 139.1 ml/min; Glucose 131 mg/dl (70-99); Magnesium 1.9 mg/dl (1.8-2.4); Sodium 141 mmol/L (136-145)
[2021-05-02] MEDS ORDERED: POTASSIUM CHLORIDE CRTAB 20 MEQ TABCR PO STA (09:24)
[2021-05-02 09:32] LABS: Alkaline Phosphatase 63 U/L (45-117); Globulin 3.6 gm/dl (2.5-4.0); Thyroid Stimulating Hormone < 0.005 uIu/ml (0.300-4.500); Total Protein 7.1 gm/dl (6.4-8.2)
[2021-05-02] MEDS: POTASSIUM CHLORIDE / WTR 10 MEQ/100 ML PLCT IV SCH ×2 (09:32→10:38)
[2021-05-02 10:14] LABS: Bilirubin,Total 0.2 mg/dl (0.2-1); T4 Free Thyroxine 1.13 ng/dl (0.8-1.6)
--- NOTE | 2021-05-02 11:55 | History & Physical Report ---
Date of Service May 02, 2021 Assessment & Plan (1) Hypokalemia: Plan: Attending: Dr. Ayoub Impression: 20-year-old Citizen Of [place] male with history of Graves' disease with hyperthyroidism with periodic paralysis. Found to have potassium level of 2.0 and magnesium level of 1.9. Potassium repleted in the emergency department. Patient will be admitted as observation patient for electrolyte replacement. Severe hypokalemia secondary to Graves' disease with hyperthyroidism * EKG with LA interval of 232 representing sinus rhythm with first-degree AV block. This is most likely secondary to the hypokalemia * Repeat EKG every morning and with chest pain * Replete potassium as suggested below Patient received a total of 60 mEq of potassium replacement in the emergency department A suggested protocol is 30 mEq of oral potassium every two hours until improvem ent begins, with a maximum dose of 90 mEq in 24 hours [63 https://www.[employer]/contents/dslzfzvmlx-vbqiopym-vsijpsegl/abstract/63 ]. Some recommend slower rates of administration (<10 mEq per hour) [5,64 https://www.[employer]/contents/tyobfojqez-zhvwjlar-btmszykjw/abstract/5,64 ]. Will check labs every 4 hours. We will give the patient 1 g of magnesium sulfate IV We will not order any more potassium until 1300 when labs are repeated (2) Hypomagnesemia: Plan: Magnesium is 1.9 Due to severe hypokalemia, will order 1 g of magnesium sulfate Follow magnesium levels every 4 hours with potassium levels (3) Hyperthyroidism: Plan: Suspect acquired Graves' hyperthyroidism TSH is undetectable Continue methimazole Patient took his dose of methimazole in the emergency department Patient recently saw Dr. Foote as an outpatient 04/28/2021 Continue to follow with endocrinology and with patient's medical team in [place] (4) Graves disease: Plan: See above (5) Thyrotoxic periodic paralysis: Plan: See above We will place patient on fall precautions until his potassium is repleted (6) DVT prophylaxis: Plan: Due to periodic paralysis secondary to above, will start patient on heparin 5000 units subcu every 12 hours Ambulate as tolerated with assistance History of Present Illness Chief Complaint: Toxic thyroiditis secondary to acquired hyperthyroidism Primary Care Provider: [facility] Attending: Dr. Ayoub This is a 20-year-old Citizen Of [place] male with past medical history of Graves' hyperthyroidism. 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 He most recently was admitted 04/16/2021. He had a follow-up appoint with Dr. Foote with endocrinology 04/28/2021. Patient was recently started on methimazole after his last admission. No other changes by Dr. Foote at that appointment. Patient reports again that he had increased activity including running. He developed severe weakness in his legs with some cramping in his right groin. He presented to the emergency department is found to have undetectable TSH as well as a potassium level of 2.0. His magnesium level is 1.9. He has no difficulty with swallowing or breathing. His only complaint is muscle weakness of large muscles. Patient was given 2 potassium riders in the emergency department for a total of 20 mEq of supplemental potassium. He was also given 40 mEq of oral potassium. In addition, he is receiving 1 L of lactated Ringer's. Patient has no complaints of fever, chills, sweats, rigors. No cough. He has no chest pain or tightness. He has no pleuritic pain. He denies any falls. He has no other acute complaints at this time. Allergies Allergy/AdvReac Type Severity Reaction Status Date / Time No Known Allergies Allergy Verified 05/02/21 08:43 Home Medications Medication Instructions Recorded Confirmed Type methimazole 10 mg tablet 20 mg PO BID #90 tab 04/08/21 05/02/21 Rx propranolol 20 mg tablet 40 mg PO QAM 04/16/21 05/02/21 History Past Med/Surg History Medical History Graves disease Hyperthyroidism Thyrotoxic periodic paralysis Surgical History No pertinent past surgical history Family History Denies family history of Diabetes Social History Smoking Status: Never smoker Second Hand Exposure: No; Do You Dip or Chew Tobacco: No; Tobacco Cessation Education Requested by Patient: No Hx Alcohol Use: No Hx Substance Use: No Preferred Language: Citizen Of [place] Communication Ability: Effective Field Evidence Technician Required: No Beliefs That Will Affect Care: None Current Living Situation: Other Current Living Situation Comment: room mates How many Children do You have: 0 Other Information That Helps Us Care for You: No Feels Safe at Home: Yes Safety Concerns: Feels Safe At This Time Assistive Devices: None Review of Systems Review of Systems: All systems reviewed & are unremarkable except as noted in Subjective Physical Exam Physical Exam: GENERAL : No acute distress. Patient is alert and oriented x3. He appears to be in good physical shape EYES: No icterus, gaze conjugate. Pupils equal round and reactive to light NOSE: No evidence of epistaxis MOUTH: No lesions or candidiasis. Tongue is midline. No slurring of speech. NECK: Supple. LUNGS: CTA B/L, no wheezes, rales or rhonchi HEART: Regular, rate controlled. No appreciation of any ectopy. ABDOMEN: Soft, NT, ND, BS Present EXTREMITIES: No LE edema, pedal pulses intact and equal bilaterally. NEURO: A&OX3. No slurred speech. Appears to be swallowing appropriately. No other acute findings. Results & Data Results & Data ([facility]) Vital Signs (Past 12 Hours) Vital Signs Temp Pulse Pulse Resp BP BP Pulse Ox 05/02/21 10:27 93 H 18 125/71 97 05/02/21 09:03 97 05/02/21 08:27 37.4 C 97 H 18 140/81 97 Laboratory Results 05/02/21 08:50 05/02/21 08:50 Magnesium level 1.9 Medications Administered Potassium chloride 40 mEq p.o. Potassium chloride 10 mill equivalent IV rider x2 for a total of 20 mEq Lactated Ringer's x1 L Code Status & VTE Plan Code Status Level I: Full resuscitation VTE Prophylaxis Plan VTE Prophylaxis will be ordered: Yes Supervising Physician Co-Signing Physician Notes Attending Attestation and Admit Note: Pt seen/examined, chart reviewed, care plan d/w ADALBERTO Dale. I agree w/ the zhou components of his documentation except -- patient DENIES any excessive exercise in the last 2-3 days prior to this event. Denies sleep deprivation. ?heavy carbohydrate consumption? PMH/PSH/allergies/meds/sochx/famhx - reviewed VSS, afebrile gen - NAD mouth - MMM heart - RRR, s1 s2 lungs - CTA b/l abd - soft NT ext - no edema, pulses 2+ b/l neuro - strength 5/5 x 4 exts initial K =2 s/p replacement, K now = 4.7 mag level wnl EKG - no u waves, NSR A/P: Recurrent, severe episodes of symptomatic hypokalemia. Previous episodes attributed to hyperthyroid-induced periodic paralysis. Hyperthyroidism 2nd to Graves. K repleted and now normal. Hyperthyroidism - clinically and biochemically improved; FT4 now normal range. No hyperthyroid symptoms. Strongly consider nephrology consult for the low K - this is his 3rd episode of such requiring hospitalization. Watch overnight. Ruben Ayoub MD PG Care Time/CCT Total # of Minutes Spent Total Time Spent with Patient: Total time spent is greater than 50% in coordination of care (as documented) at patient's floor/unit and/or counseling patient: 75 minutes including time with patient and researching treatment Coding Level of Care Code 69647 Initial Inpt Care Lvl 2 Diagnoses Hypokalemia E87.6 Hypomagnesemia E83.42 Hyperthyroidism E05.90 Graves disease E05.00 Thyrotoxic periodic paralysis G72.3 DVT prophylaxis Z29.9 Time Spent (min) 75
[2021-05-02] MEDS ORDERED: MAGNESIUM SULFATE / D5W 1 GM/100 ML BAG IV ONE (11:56)
[2021-05-02 12:07] LABS: Appearance Urine Clear (Clear); Bacteria Urine Automated Negative (Negative); Bilirubin Urine Negative (Negative); Blood Urine Negative (Negative); Color Urine Yellow; Glucose Urine UA Negative (Negative); Ketones Urine Negative (Negative); Leukocyte Esterase Urine Negative (Negative); Nitrite Urine Negative (Negative); Protein Urine Trace (Negative); RBC Urine Automated 0-4 /hpf (0-4); Specific Gravity Urine 1.024 (1.000-1.030); Urobilinogen Urine Negative (Negative)
[2021-05-02] MEDS ORDERED: ACETAMINOPHEN 325 MG TAB PO PRN (14:38)
[2021-05-02 15:31] LABS: BUN Creatinine Ratio 14.9 (10-20); Blood Urea Nitrogen 9 mg/dl (7-18); Calcium 8.8 mg/dl (8.5-10.1); Carbon Dioxide 26 mmol/L (21-32); Chloride 108 mmol/L (98-107); Est GFR (African American) > 150.0 ml/min; Est GFR (Non-African American) 143.7 ml/min; Glucose 99 mg/dl (70-99); Magnesium 2.4 mg/dl (1.8-2.4); Phosphorus 2.8 mg/dl (2.5-4.9); Potassium 4.7 mmol/L (3.5-5.1); Sodium 139 mmol/L (136-145)
[2021-05-02] MEDS: PROPRANOLOL HCL 20 MG TAB PO SCH ×2 (15:46→16:24)
[2021-05-02] MEDS: methIMAzole 5 MG TABLET PO SCH (20:21)
[2021-05-02 20:45] LABS: BUN Creatinine Ratio 8.7 (10-20); Calcium 9.3 mg/dl (8.5-10.1); Creatinine Clr Calc Pharmacy 129.3 ml/min; Est GFR (African American) 135.5 ml/min; Est GFR (Non-African American) 116.9 ml/min; Magnesium 2.5 mg/dl (1.8-2.4); Potassium 4.5 mmol/L (3.5-5.1)
--- NOTE | 2021-05-03 06:14 | Electrocardiogram Report ---
Test Reason : Blood Pressure : / mmHG Vent. Rate : 096 BPM Atrial Rate : 096 BPM P-R Int : 232 ms QRS Dur : 108 ms QT Int : 362 ms P-R-T Axes : 063 048 008 degrees QTc Int : 457 ms Sinus rhythm with 1st degree A-V block Possible Left atrial enlargement Incomplete right bundle branch block Borderline ECG When compared with ECG of 16-APR-2021 04:16, MA interval has increased Confirmed by Thad Gardner ([id number]) on 05/03/2021 6:13:39 AM Referred By: REFERRED SELF Confirmed By:Thad Gardner
--- NOTE | 2021-05-03 07:52 | Hospitalist Progress Note ---
Date of Service May 03, 2021 Assessment & Plan Admission and Anticipated Discharge Date Admission Date: May 02, 2021 Results & Data Results & Data ([facility]) Vital Signs (Past 12 Hours) Vital Signs Temp Pulse Pulse Pulse Resp BP Pulse Ox 05/03/21 07:12 36.5 C 74 18 111/69 96 05/03/21 07:00 68 05/03/21 03:56 36.3 C L 74 16 104/61 96 05/03/21 00:52 89 05/02/21 22:51 77 05/02/21 22:00 36.8 C 88 18 125/78 96 05/02/21 20:21 83 22 145/91 H 97 Laboratory Results 05/02/21 05/02/21 05/02/21 Range/Units 20:05 14:54 12:00 WBC (4.8-10.8) K/uL RBC (4.7-6.1) M/uL Hgb (14.0-18.0) g/dL Hct (42-52) % MCV (80-100) fL MCH (25-34) pg MCHC (32-36) g/dL RDW Std Deviation (36.4-46.3) fL RDW Coeff of Rory (11.5-14.5) % Plt Count (130-400) K/uL MPV (7.4-10.4) fL Immature Gran % (Auto) % Neut % (Auto) % Lymph % (Auto) % [place] % (Auto) % Eos % (Auto) % Baso % (Auto) % Neut # (Auto) (1.4-6.5) K/uL Lymph # (Auto) (1.2-3.4) K/uL [place] # (Auto) (0.11-0.59) K/uL Eos # (Auto) (0-0.5) K/uL Baso # (Auto) (0-0.2) K/uL Immature Gran # (Auto) (0.00-0.02) K/uL Sodium 138 139 (136-145) mmol/L Potassium 4.5 4.7 D (3.5-5.1) mmol/L Chloride 108 H 108 H (98-107) mmol/L Carbon Dioxide 25 26 (21-32) mmol/L Anion Gap 5.0 5.0 (3-11) BUN 8 9 (7-18) mg/dl Creatinine 0.93 D 0.60 (0.6-1.4) mg/dl Est Cr Clr Drug Dosing 129.3 Not Reportable Est GFR ( Amer) 135.5 > 150.0 ml/min Est GFR (Non-Af Amer) 116.9 143.7 ml/min BUN/Creatinine Ratio 8.7 L 14.9 (10-20) Glucose 110 H 99 (70-99) mg/dl Calcium 9.3 8.8 (8.5-10.1) mg/dl Phosphorus 2.8 (2.5-4.9) mg/dl Magnesium 2.5 H 2.4 (1.8-2.4) mg/dl Total Bilirubin (0.2-1) mg/dl AST (15-37) U/L ALT (12-78) Alkaline Phosphatase (45-117) U/L Total Protein (6.4-8.2) gm/dl Albumin (3.4-5.0) gm/dl Globulin (2.5-4.0) gm/dl Albumin/Globulin Ratio (0.9-2) TSH (0.300-4.500) uIu/ml Free T4 (0.8-1.6) ng/dl Specimen Hemolysis Urine Color Yellow Urine Appearance Clear (Clear) Urine pH 7.0 (4.5-7.5) Ur Specific [place] 1.024 (1.000-1.030) Urine Protein Trace H (Negative) Urine Glucose (UA) Negative (Negative) Urine Ketones Negative (Negative) Urine Blood Negative (Negative) Urine Nitrite Negative (Negative) Urine Bilirubin Negative (Negative) Urine Urobilinogen Negative (Negative) Ur Leukocyte Esterase Negative (Negative) Urine WBC (Auto) 1-5 (0-5) /hpf Urine RBC (Auto) 0-4 (0-4) /hpf U Hyaline Cast (Auto) 1-5 (0-5) /lpf U Epithel Cells (Auto) 5-10 H (0-5) /lpf Urine Bacteria (Auto) Negative (Negative) Ur Renal Epithelial Cell Not Reportable SARS-CoV-2, RNA, NAAT (NEGATIVE) 05/02/21 05/02/21 05/02/21 Range/Units 08:58 08:50 08:50 WBC 5.23 (4.8-10.8) K/uL RBC 5.48 (4.7-6.1) M/uL Hgb 15.7 (14.0-18.0) g/dL Hct 46.0 (42-52) % MCV 83.9 (80-100) fL MCH 28.6 (25-34) pg MCHC 34.1 (32-36) g/dL RDW Std Deviation 38.3 (36.4-46.3) fL RDW Coeff of Rory 12.7 (11.5-14.5) % Plt Count 315 (130-400) K/uL MPV 9.8 (7.4-10.4) fL Immature Gran % (Auto) 0.0 % Neut % (Auto) 67.1 % Lymph % (Auto) 26.0 % [place] % (Auto) 5.4 % Eos % (Auto) 1.3 % Baso % (Auto) 0.2 % Neut # (Auto) 3.51 (1.4-6.5) K/uL Lymph # (Auto) 1.36 (1.2-3.4) K/uL [place] # (Auto) 0.28 (0.11-0.59) K/uL Eos # (Auto) 0.07 (0-0.5) K/uL Baso # (Auto) 0.01 (0-0.2) K/uL Immature Gran # (Auto) 0.00 (0.00-0.02) K/uL Sodium 141 (136-145) mmol/L Potassium 2.0 L* (3.5-5.1) mmol/L Chloride 112 H (98-107) mmol/L Carbon Dioxide 24 (21-32) mmol/L Anion Gap 5.0 (3-11) BUN 13 (7-18) mg/dl Creatinine 0.65 (0.6-1.4) mg/dl Est Cr Clr Drug Dosing Not Reportable Est GFR ( Amer) > 150.0 ml/min Est GFR (Non-Af Amer) 139.1 ml/min BUN/Creatinine Ratio 19.5 (10-20) Glucose 131 H (70-99) mg/dl Calcium 8.5 (8.5-10.1) mg/dl Phosphorus (2.5-4.9) mg/dl Magnesium 1.9 (1.8-2.4) mg/dl Total Bilirubin 0.2 (0.2-1) mg/dl AST 40 H (15-37) U/L ALT 131 H (12-78) Alkaline Phosphatase 63 (45-117) U/L Total Protein 7.1 (6.4-8.2) gm/dl Albumin 3.5 (3.4-5.0) gm/dl Globulin 3.6 (2.5-4.0) gm/dl Albumin/Globulin Ratio 1.0 (0.9-2) TSH < 0.005 L (0.300-4.500) uIu/ml Free T4 1.13 (0.8-1.6) ng/dl Specimen Hemolysis Urine Color Urine Appearance (Clear) Urine pH (4.5-7.5) Ur Specific [place] (1.000-1.030) Urine Protein (Negative) Urine Glucose (UA) (Negative) Urine Ketones (Negative) Urine Blood (Negative) Urine Nitrite (Negative) Urine Bilirubin (Negative) Urine Urobilinogen (Negative) Ur Leukocyte Esterase (Negative) Urine WBC (Auto) (0-5) /hpf Urine RBC (Auto) (0-4) /hpf U Hyaline Cast (Auto) (0-5) /lpf U Epithel Cells (Auto) (0-5) /lpf Urine Bacteria (Auto) (Negative) Ur Renal Epithelial Cell SARS-CoV-2, RNA, NAAT NEGATIVE (NEGATIVE) PG Care Time/CCT Total # of Minutes Spent Total Time Spent with Patient: Total time spent is greater than 50% in coordination of care (as documented) at patient's floor/unit and/or counseling patient: Coding
--- NOTE | 2021-05-03 08:57 | Electrocardiogram Report ---
Test Reason : Blood Pressure : / mmHG Vent. Rate : 078 BPM Atrial Rate : 078 BPM P-R Int : 160 ms QRS Dur : 094 ms QT Int : 412 ms P-R-T Axes : 074 063 047 degrees QTc Int : 469 ms Normal sinus rhythm Incomplete right bundle branch block Minor ST elevation, most consistent with repolarization variant Peaked T waves(consider ischemia,hyperkalemia,etc.) Borderline ECG When compared with ECG of 02-MAY-2021 08:58, TX interval has decreased T waves now peaked Confirmed by Wilton Mondragon ([id number]) on 05/03/2021 8:57:03 AM Referred By: REFERRED SELF Confirmed By:Wilton Mondragon
[2021-05-03] MEDS: methIMAzole 5 MG TABLET PO SCH (09:16)
[2021-05-03] MEDS: PROPRANOLOL HCL 20 MG TAB PO SCH (09:17)
[2021-05-03 09:24] LABS: Alanine Aminotransferase 172 (12-78); Albumin Level 3.7 gm/dl (3.4-5.0); Aspartate Aminotransferase 52 U/L (15-37); BUN Creatinine Ratio 15.3 (10-20); Bilirubin Direct 0.1 mg/dl (0-0.2); Blood Urea Nitrogen 11 mg/dl (7-18); Calcium 9.3 mg/dl (8.5-10.1); Carbon Dioxide 26 mmol/L (21-32); Chloride 108 mmol/L (98-107); Est GFR (African American) > 150.0 ml/min; Est GFR (Non-African American) 132.6 ml/min; Glucose 96 mg/dl (70-99); Potassium 4.6 mmol/L (3.5-5.1); Sodium 138 mmol/L (136-145)
[2021-05-03 09:27] LABS: Alkaline Phosphatase 64 U/L (45-117); Total Protein 7.3 gm/dl (6.4-8.2)
--- NOTE | 2021-05-03 09:42 | Discharge Summary ---
Date of Service May 03, 2021 Admission HPI Per Admitting Provider Attending: Dr. Ayoub This is a 20-year-old [place] male with past medical history of Graves' hyperthyroidism. 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 He most recently was admitted 04/16/2021. He had a follow-up appoint with Dr. Foote with endocrinology 04/28/2021. Patient was recently started on methimazole after his last admission. No other changes by Dr. Foote at that appointment. Patient reports again that he had increased activity including running. He developed severe weakness in his legs with some cramping in his right groin. He presented to the emergency department is found to have undetectable TSH as well as a potassium level of 2.0. His magnesium level is 1.9. He has no difficulty with swallowing or breathing. His only complaint is muscle weakness of large muscles. Patient was given 2 potassium riders in the emergency department for a total of 20 mEq of supplemental potassium. He was also given 40 mEq of oral potassium. In addition, he is receiving 1 L of lactated Ringer's. Patient has no complaints of fever, chills, sweats, rigors. No cough. He has no chest pain or tightness. He has no pleuritic pain. He denies any falls. He has no other acute complaints at this time. Admission Exam Per Admitting Provider GENERAL : No acute distress. Patient is alert and oriented x3. He appears to be in good physical shape EYES: No icterus, gaze conjugate. Pupils equal round and reactive to light NOSE: No evidence of epistaxis MOUTH: No lesions or candidiasis. Tongue is midline. No slurring of speech. NECK: Supple. LUNGS: CTA B/L, no wheezes, rales or rhonchi HEART: Regular, rate controlled. No appreciation of any ectopy. ABDOMEN: Soft, NT, ND, BS Present EXTREMITIES: No LE edema, pedal pulses intact and equal bilaterally. NEURO: A&OX3. No slurred speech. Appears to be swallowing appropriately. No other acute findings. Principal Diagnosis Hypokalemia, Graves Discharge Exam General: WD, WN, no acute distress Eyes: anicteric, pupils equal and reactive ENT: mmm, trachea midline, fullness of thyroid gland without nodularity appreciated Resp: CTAB, no w/c/r, on room air GI: +BS throughout, soft, nontender : no Baptiste Ext: moves all extremities, no focal deficits, stunner and shackler intact, answers questions appropriately Skin: warm, dry, no obvious lesions Discharge Data Allergies Allergy/AdvReac Type Severity Reaction Status Date / Time No Known Allergies Allergy Verified 05/02/21 08:43 Consultations 05/02/21 10:52 ED Decision to Admit Stat Hospital Course (1) Hypokalemia: Impression: 20-year-old [place] male with history of Graves' disease with hyperthyroidism with periodic paralysis. Found to have potassium level of 2.0 and magnesium level of 1.9. Hypokalemia replacement ordered with --> 2 K riders and 40meq PO x 1 with repeat K 4.7 and remained stable on repeat 4.5-4.6. Also given 1gm IV mag Severe hypokalemia secondary to Graves' disease with hyperthyroidism. TSH still undetectable, Ft4 improved from 2.28 to 1.13 this admission Free t3 5.07 from 14.06 --> Discussed with Endocrinology and ensured patient taking the methimazole 20mg BID (new rx also sent to ensure he has enough for follow up) and could be that stored thyroid hormone taking some time to be used up. Discussed prn oral potassium if repeat symptoms to prevent need for hospitalization but if not improved should return to ER No chest pain, shortness of breath, weakness or other symptoms reported this morning and felt ready for discharge Patient reported he would have liked to take skiing class-- educated NOT to do so and would avoid any strenuous activity to prevent recurrence/rhabdo/other complications To follow up with S in the next week to monitor progress. Repeat labs in next 3 days and also provided weekly lab slips for next couple weeks to ensure stability. To f/u Endocrinology at d/c for continued monitoring/adjustments (2) Hypomagnesemia: Magnesium is 1.9, ordered 1gm IV given hypokalemia No deficiency on repeat (3) Hyperthyroidism: Suspect acquired Graves' hyperthyroidism TSH is undetectable, Ft4 now wnl and Free T3 5.07 from 14 in March Continue methimazole 20mg BID -- continued and new rx at d/c. Discussed with Endocrinology and patient to continue such and have f/u outpatient (4) Graves disease: See above (5) Thyrotoxic periodic paralysis: See above Fall precautions ordered until K was replaced (6) DVT prophylaxis: Due to periodic paralysis secondary to above, started on Heparin 5000u SQ Q12 while inpatient, ambulation as tolerated d/c home/[facility] continue methimazole 20mg BID repeat labs 3 days to ensure K stable, then weekly for several weeks prn potassium weakness/cramping until hyperthyroidism under better control and will need continued follow up with Endocrinology Of note, patient from [place] and traveling back this summer and should have care coordinated with [facility] and his providers from [place] Total Time Total Time Spent Total Time Spent (In Minutes): 35 Discharge Plan Discharge Items Patient Disposition: Home - Self-Care Reason For Visit: HYPOKALEMIA Discharge Diagnosis: Hypokalemia Goals: You have been hospitalized for an acute medical problem. During your stay at [facility], we have made an effort to correct the problem that brought you to the hospital while keeping you as comfortable as possible. Medications were used to bring your condition under control and your discharge instructions will include directions for any medications you should take after leaving the hospital. Please make sure you see your Primary Care Provider as part of your follow up plan. Activity: Resume your previous activity Activity Comment: no heavy exercising/lifting until thyroid levels normalized Non-emergency contact: Primary Care Provider and Specialist Call non-emergency contact if: you have any medication questions and your symptoms worsen Follow-up/Referrals: Karson Foote MD [Physician] - 06/09/21 9:30 am () [facility] [Primary Care Provider] - (PLEASE CALL [facility] TO SCHEDULE A DISCHARGE FOLLOW-UP APPOINTMENT WITHIN 7-10 DAYS.) Diet: Regular Diet Comment: high potassium foods Ambulatory Orders: Basic Metabolic Panel (Q7D) Timeframe: [id number] Location: Determined by Patient Ordered By: Naa Michel Basic Metabolic Panel (Routine) Timeframe: 3 Days Location: Determined by Patient Ordered By: Naa Michel Addtl Attending Provider Instructions: You have been hospitalized for low potassium level, which can cause weakness and fatigue. Other causes previously ruled out, and as discussed with Dr. Foote, you should continue the methimazole 20mg by mouth twice daily as your stored thyroid hormone could be taking some time to get used up, leading to low potassium levels in the meantime. You have also been sent a prescription for potassium orally, 20meq, to take if you notice cramping/fatigue/repeat symptoms to avoid needed to again be rehospitalized as your potassium level responded quickly to replacement and did not need any further replacement. You have been provided lab slips to ensure potassium are stable. Prescriptions for refill of the methimazole and the supplemental potassium have been sent. You can also help by eating more foods rich in potassium. Please follow up with Dr. Foote and your PCP after discharge to monitor your progress, as you will need continued monitoring of your thyroid hormones and adjustments based on repeat results. NO WORKING OUT/HEAVY LIFTING/SKI CLASSES above brisk walking would be advised as moderate/heavy exercise may result in repeat hospitalization due to increased metabolic needs and underlying hyperthyroidism. Please return to the ER if any increase/worsening of symptoms, chest pain, shortness of breath, fever, or for any other symptoms that are concerning for you. It has been a pleasure being a part of the medical team providing for you while you have been in the hospital. Take care! Pending Studies at Discharge: No Stand-Alone Forms: My [facility] Medications and DC Order Prescriptions: New potassium chloride 10 mEq tablet extended release 10 meq PO DAILY PRN (Reason: cramping) Qty: 10 RF: 0 Continued propranolol 20 mg tablet 40 mg PO QAM RF: 0 methimazole 10 mg tablet 20 mg PO BID Qty: 90 RF: 3 Discharge Orders: Discharge Order (Routine); Ordered 05/03/21 Ordered By: Naa Michel Admission Data Admit Date/Time: 05/02/21 11:39 Attending Provider: Ruben Ayoub Admit Provider: Ruben Ayoub Primary Care Provider: [facility] Other Providers: Ruben Ayoub Other Interventions: Discharge Summary Assessment (RN) Last Done: 05/03/21 13:09 Supervising Physician Co-Signing Physician Notes Attending Attestation & Discharge Note - Pt seen/examined, chart reviewed, care plan d/w ADALBERTO Michel. I agree w/ the zhou components of her documentation. 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 Presented with same - admission K level of 2. Replaced IV/PO - K normalized to between 4.5 and 5. Vitals and telemetry remained stable while here. Ms Michel discussed his case with endocrinology/nephrology - will use prn use of potassium supplement if he feels muscle cramps, weakness, etc come on similar to this admission. In addition, pt will have serial labs as outpatient with the hopes of keeping close watch on his electrolytes and preventing readmission. Discharge exam - gen - NAD mouth - MMM heart - RRR, s1 s2, no murmur lungs - CTA b/l abd - soft NT ND BS+ ext - no edema, pulses 2+ b/l neuro - strength 5/5 x 4 exts Of note - ast/alt have been minimally elevated since 03/2021 - these bear watching as outpatient. ?fatty liver? Ruben Ayoub MD
[2021-05-03 10:01] LABS: Bilirubin,Total 0.4 mg/dl (0.2-1)
== END 2021-05-03 15:15 | disposition home or self-care (01) | DRG 645 ==
LOC: ED 08:20 → EDINP 11:39 → 2N 14:43

== ENCOUNTER 2021-08-06 08:37 | Inpatient (IN) ==
[2021-08-06] MEDS ORDERED: LACTATED RINGER'S 1,000 ML IV ONE (09:05)
[2021-08-06] MEDS ORDERED: POTASSIUM CHLORIDE CRTAB 20 MEQ TABCR PO STA (09:05)
--- NOTE | 2021-08-06 09:09 | Emergency Department Note ---
Impression & Plan Hyperthyroidism, Hypokalemia, Weakness, Elevated CK ED Provider Note Provider: Donis Valle MD DATE OF SERVICE: 08/06/2021 CHIEF COMPLAINT: Weakness, elevated heart rate HISTORY OF PRESENT ILLNESS: Patient is a 21-year-old gentleman history of thyroid dysfunction as well as weakness related to potassium issues presenting here today reporting that last 24 hours he has felt this in his legs. Denies any falls or trauma. Denies fever or URI symptoms including runny nose, sore throat, or cough. Denies nausea or abdominal pain. States has been taking methimazole but only has a few tablets left. Patient has been following with outpatient chronology. Patient states he was last on potassium supplementation about a month ago. Patient states has not been eating breakfast regularly for at least the past week and wonders this may be contributing. States he does have heart rates been a bit elevated. Denies lightheadedness or fainting. Patient denies numbness or tingling anywhere. Patient states feels similar to prior episodes of weakness related to his thyroid and hypokalemia. REVIEW OF SYSTEMS: A total of 10 review of systems was obtained and negative except as stated above in the HPI. PAST MEDICAL HISTORY: As noted above MEDICATIONS: Reviewed home medications with the patient SOCIAL HISTORY: [employer] student PHYSICAL EXAM: GENERAL: alert and oriented in no acute distress on stretcher, somewhat fatigued appearing Head: normocephalic and atraumatic EYES: No injection, discharge or icterus. NECK: Trachea midline. LUNGS: Airway patent. No retractions. Breath sounds clear with good air entry bilaterally. HEART: Regular tachycardic rate and rhythm. No chest wall tenderness ABDOMEN: Soft and non-tender, without guarding or rebound. SKIN: Acyanotic, warm, dry, without rashes EXTREMITIES: Without swelling, tenderness or deformity NEUROLOGICAL: No focal deficits. No aphasia. No facial droop or slurred speech. Sensation to gross touch normal. 3/5 weakness in lower extremities bilaterally. EK bpm sinus tachycardia. No PVC or PAC. No acute ST segment elevation with incomplete right bundle branch block. QTc 453. CONTINUOUS CARDIAC MONITORING: was ordered and showed a heart rate of 80s-110s bpm in normal sinus rhythm to sinus tachycardia Patient's laboratory studies reviewed. Differential includes Infection, dehydration, metabolic abnormality, hypo/hyperglycemia, electrolyte disturbance, anemia, hypoxia, cardiac sources, intracerebral event, toxicologic, neurologic, as well as other pathologies. IMPRESSION/MEDICAL DECISION MAKING: Patient with a nonspecific generalized weakness lower extremity is without numbness. No trauma reported. History of thyroid dysfunction and potassium issues. I seen him before for this reviewed medical records. Patient states compliant with home methimazole. Patient states he not been eating the best but denies any other illness and states he has been sleeping okay. Unsure if possible physiological stress may cause exacerbation. Given his potassium here initially as well as some small amount of IV fluid. Lower suspicion given his lack of shortness of breath and hypoxia this represents PE. Given the history lower suspicion for CVA. Chemistries were sent including thyroid function. Free T3 is elevated again at 5.8. Free T4 within normal limits although TSH is undetectably low. CK is elevated with hypokalemia 2.5. No significant ALT or AST elevation noted. Normal CBC. Given some additional IV potassium. Discussed given concerning findings with the hypokalemia and the CK for further observation here. IV magnesium supplementation ordered as well although this is within normal limits at 1.8. Discussed with the patient given the need for electrolyte repletion and thus recommended further observation until his symptoms improve. Hospitalist was contacted. DIAGNOSIS: Hypokalemia, weakness, hyperthyroidism, elevated CK DISPOSITION: Hospitalist will evaluate Patient was agreeable with this plan. 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 Beliefs That Will Affect Care: None Current Living Situation: Other Current Living Situation Comment: room mates How many Children do You have: 0 Feels Safe at Home: Yes Assistive Devices: Glasses Allergies Allergies Allergy/AdvReac Type Severity Reaction Status Date / Time No Known Allergies Allergy Verified 08/06/21 09:41 Home Meds Previous Rx's Medication Instructions Recorded methimazole 10 mg tablet 20 mg PO BID #90 tab 05/03/21 Results & Data (ED) Vital Signs Vital Signs - 24 hr 08/06/21 08:43 08/06/21 08:53 08/06/21 10:00 Pulse Rate 109 H Pulse Rate [Right Finger] 98 H Pulse Rhythm Regular Pulse Rhythm [Right Finger] Regular Pulse Strength Normal Pulse Strength [Right Finger] Normal Respiratory Rate 20 18 Respiratory Effort / Characteristics Non-Labored Spontaneous Non-Labored Respiratory Depth Normal Normal Respiratory Pattern Regular Regular Blood Pressure 150/88 H Blood Pressure [Right Arm] 138/85 Blood Pressure Mean 108 Blood Pressure Mean [Right Arm] 102 Blood Pressure Position Sitting Blood Pressure Position [Right Arm] Lying Pulse Oximetry 96 98 Oxygen Delivery Method Room Air Room Air Room Air Sepsis Recent Fever Within 48 Hours No Sepsis New/Unexplained Change in Mental Status N/A Sepsis Action Taken by Nursing No Action Required Laboratory Data Result diagrams: 08/06/21 09:19 08/06/21 09:19 Lab Results 08/06/21 08/06/21 08/06/21 Range/Units 09:19 09:19 09:19 WBC 7.06 (4.8-10.8) K/uL RBC 5.81 (4.7-6.1) M/uL Hgb 17.0 (14.0-18.0) g/dL Hct 48.7 (42-52) % MCV 83.8 (80-100) fL MCH 29.3 (25-34) pg MCHC 34.9 (32-36) g/dL RDW Std Deviation 36.7 (36.4-46.3) fL RDW Coeff of Rory 12.1 (11.5-14.5) % Plt Count 325 (130-400) K/uL MPV 10.3 (7.4-10.4) fL Immature Gran % (Auto) 0.3 % Neut % (Auto) 66.0 % Lymph % (Auto) 21.5 % [place] % (Auto) 9.8 % Eos % (Auto) 2.3 % Baso % (Auto) 0.1 % Neut # (Auto) 4.66 (1.4-6.5) K/uL Lymph # (Auto) 1.52 (1.2-3.4) K/uL [place] # (Auto) 0.69 H (0.11-0.59) K/uL Eos # (Auto) 0.16 (0-0.5) K/uL Baso # (Auto) 0.01 (0-0.2) K/uL Immature Gran # (Auto) 0.02 (0.00-0.02) K/uL Sodium 138 (136-145) mmol/L Potassium 2.5 L* (3.5-5.1) mmol/L Chloride 108 H (98-107) mmol/L Carbon Dioxide 23 (21-32) mmol/L Anion Gap 7 (3-11) BUN 12 (6-23) mg/dl Creatinine 0.61 (0.6-1.4) mg/dl Est Cr Clr Drug Dosing 206.0 ml/min Est GFR ( Amer) > 150.0 ml/min Est GFR (Non-Af Amer) 141.8 ml/min BUN/Creatinine Ratio 19.7 (10-20) Glucose 123 H (70-99(Fasting)) mg/dl Calcium 9.1 (8.5-10.1) mg/dl Magnesium 1.8 (1.7-2.4) mg/dl Total Bilirubin 0.3 (0.2-1.0) mg/dl AST 25 (13-39) U/L ALT 48 (7-52) U/L Alkaline Phosphatase 61 (34-104) U/L Total Creatine Kinase 827 H (30-223) U/L Total Protein 7.2 (6.0-8.3) gm/dl Albumin 4.3 (3.4-5.0) gm/dl Globulin 2.9 (2.5-4.0) gm/dl Albumin/Globulin Ratio 1.5 (0.9-2) TSH < 0.010 L (0.300-4.500) uIu/ml Free T4 1.20 (0.61-1.60) ng/dl Free T3 (2.3-4.2) pg/ml SARS-CoV-2, RNA, NAAT (NEGATIVE) 08/06/21 08/06/21 Range/Units 09:19 10:05 WBC (4.8-10.8) K/uL RBC (4.7-6.1) M/uL Hgb (14.0-18.0) g/dL Hct (42-52) % MCV (80-100) fL MCH (25-34) pg MCHC (32-36) g/dL RDW Std Deviation (36.4-46.3) fL RDW Coeff of Rory (11.5-14.5) % Plt Count (130-400) K/uL MPV (7.4-10.4) fL Immature Gran % (Auto) % Neut % (Auto) % Lymph % (Auto) % [place] % (Auto) % Eos % (Auto) % Baso % (Auto) % Neut # (Auto) (1.4-6.5) K/uL Lymph # (Auto) (1.2-3.4) K/uL [place] # (Auto) (0.11-0.59) K/uL Eos # (Auto) (0-0.5) K/uL Baso # (Auto) (0-0.2) K/uL Immature Gran # (Auto) (0.00-0.02) K/uL Sodium (136-145) mmol/L Potassium (3.5-5.1) mmol/L Chloride (98-107) mmol/L Carbon Dioxide (21-32) mmol/L Anion Gap (3-11) BUN (6-23) mg/dl Creatinine (0.6-1.4) mg/dl Est Cr Clr Drug Dosing ml/min Est GFR ( Amer) ml/min Est GFR (Non-Af Amer) ml/min BUN/Creatinine Ratio (10-20) Glucose (70-99(Fasting)) mg/dl Calcium (8.5-10.1) mg/dl Magnesium (1.7-2.4) mg/dl Total Bilirubin (0.2-1.0) mg/dl AST (13-39) U/L ALT (7-52) U/L Alkaline Phosphatase (34-104) U/L Total Creatine Kinase (30-223) U/L Total Protein (6.0-8.3) gm/dl Albumin (3.4-5.0) gm/dl Globulin (2.5-4.0) gm/dl Albumin/Globulin Ratio (0.9-2) TSH (0.300-4.500) uIu/ml Free T4 (0.61-1.60) ng/dl Free T3 5.80 H (2.3-4.2) pg/ml SARS-CoV-2, RNA, NAAT NEGATIVE (NEGATIVE) Administered Medications Discontinued Medications Lactated Ringer's (Lr) 1,000 mls @ 999 mls/hr IV .Q1H1M ONE Stop: 08/06/21 10:05 Last Infusion: 08/06/21 11:03 Dose: 0 mls/hr Documented by: [id number] Admin: 08/06/21 09:55 Dose: 999 mls/hr Documented by: [id number] Potassium Chloride (K Nasim / Wtr) 10 meq in 100 mls @ 100 mls/hr IV Q1H MARICRUZ; Protocol Stop: 08/06/21 12:29 Last Infusion: 08/06/21 11:42 Dose: 0 mls/hr Documented by: [id number] Admin: 08/06/21 10:38 Dose: 100 mls/hr Documented by: [id number] Magnesium Sulfate/Dextrose (Magnesium Sulfate / D5w) 1 gm in 100 mls @ 100 mls/hr IV NOW STA Stop: 08/06/21 11:50 Last Infusion: 08/06/21 12:31 Dose: 0 mls/hr Documented by: [id number] Admin: 08/06/21 11:25 Dose: 100 mls/hr Documented by: [id number] Potassium Chloride (Potassium Chloride Crtab 20 Meq Tabcr) 40 meq PO NOW STA Stop: 08/06/21 09:06 Last Admin: 08/06/21 10:20 Dose: 40 meq Documented by: [id number] Imaging Data Radiologist's Impression: Chest X-Ray 08/06/21 08:53 XR chest 1V portable CLINICAL HISTORY: weakness TECHNIQUE: Single frontal radiograph of the chest was obtained. Comparison: Comparison is made to chest one view 04/05/2021 FINDINGS: No lines and tubes are seen. The cardiomediastinal silhouette is normal. Bilateral lower lung predominant airspace opacities are seen. No evidence of pleural effusion or pneumothorax. IMPRESSION: No acute chest disease. ACT 112: Negative or not required by law. Electronically signed by: Isael Aden M.D. 08/06/2021 9:36 AM Discharge Plan Visit Data Chief Complaint: Illness Stated Complaint: THINKS POTASSIUM LOW,CAN'T MOVE LEGS,HR ELEVATED ED Provider: Donis Valle Discharge Problem: Hyperthyroidism, Hypokalemia, Weakness, Elevated CK Patient Disposition: Being Evaluated by Hospitalist
--- NOTE | 2021-08-06 09:37 | XRay Report ---
XR chest 1V portable CLINICAL HISTORY: weakness TECHNIQUE: Single frontal radiograph of the chest was obtained. Comparison: Comparison is made to chest one view 04/05/2021 FINDINGS: No lines and tubes are seen. The cardiomediastinal silhouette is normal. Bilateral lower lung predomi nant airspace opacities are seen. No evidence of pleural effusion or pneumothorax. IMPRESSION: No acute chest disease. ACT 112: Negative or not required by law. Electronically signed by: Isael Aden M.D. 08/06/2021 9:36 AM
[2021-08-06 09:44] LABS: Basophils # (auto) 0.01 K/uL (0-0.2); Basophils % (auto) 0.1 %; Eosinophils # (auto) 0.16 K/uL (0-0.5); Eosinophils % (auto) 2.3 %; Hematocrit (blood only) 48.7 % (42-52); Immature Granulocytes # (auto) 0.02 K/uL (0.00-0.02); Immature Granulocytes % (auto) 0.3 %; Lymphocytes # (auto) 1.52 K/uL (1.2-3.4); Lymphocytes % (auto) 21.5 %; Mean Corpuscular Hemoglobin 29.3 pg (25-34); Mean Corpuscular Hgb Conc 34.9 g/dL (32-36); Mean Corpuscular Volume 83.8 fL (80-100); Mean Platelet Volume 10.3 fL (7.4-10.4); Monocytes # (auto) 0.69 K/uL (0.11-0.59); Monocytes % (auto) 9.8 %; Neutrophils # (auto) 4.66 K/uL (1.4-6.5); Platelet Count 325 K/uL (130-400); RDW Coefficient of Variation 12.1 % (11.5-14.5); RDW Standard Deviation 36.7 fL (36.4-46.3); Red Blood Count 5.81 M/uL (4.7-6.1); White Blood Count 7.06 K/uL (4.8-10.8)
[2021-08-06 10:12] LABS: Alanine Aminotransferase 48 U/L (7-52); Albumin Globulin Ratio 1.5 (0.9-2); Albumin Level 4.3 gm/dl (3.4-5.0); Alkaline Phosphatase 61 U/L (34-104); Anion Gap 7 (3-11); Aspartate Aminotransferase 25 U/L (13-39); BUN Creatinine Ratio 19.7 (10-20); Bilirubin,Total 0.3 mg/dl (0.2-1.0); Blood Urea Nitrogen 12 mg/dl (6-23); Calcium 9.1 mg/dl (8.5-10.1); Carbon Dioxide 23 mmol/L (21-32); Chloride 108 mmol/L (98-107); Creatine Kinase 827 U/L (30-223); Est GFR (African American) > 150.0 ml/min; Est GFR (Non-African American) 141.8 ml/min; Globulin 2.9 gm/dl (2.5-4.0); Glucose 123 mg/dl (70-99(Fasting)); Magnesium 1.8 mg/dl (1.7-2.4); Potassium 2.5 mmol/L (3.5-5.1); Sodium 138 mmol/L (136-145); Total Protein 7.2 gm/dl (6.0-8.3)
[2021-08-06 10:23] LABS: Thyroid Stimulating Hormone < 0.010 uIu/ml (0.300-4.500)
[2021-08-06] MEDS: POTASSIUM CHLORIDE / WTR 10 MEQ/100 ML PLCT IV SCH ×2 (10:38→13:24)
[2021-08-06] MEDS ORDERED: MAGNESIUM SULFATE / D5W 1 GM/100 ML BAG IV STA (10:51)
--- NOTE | 2021-08-06 11:18 | History & Physical Report ---
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 He has had similar episodes in the past and does follow with endocrinology. Weakness due to thyrotoxic periodic paralysis with hypokalemia Potassium 2.5 on admission, magnesium normal TSH undetectable, free T4 normal, free T3 5.8 EKG: Exercise proceeded symptoms Patient did receive in ER 40 M EQ's stat dose +10 M EQ K rider. Second K rider held pending 2-hour recheck, total ER repletion dose 50 M EQ's Hold on additional potassium supplementation at this time, BMP check in 2 hours and then every 4 hours after that If potassium remains low may do an additional 20 M EQ repletion x2, do not exceed more than 90 M EQ's of repletion per 24 hours due to risk of rebound hyperkalemia - On prior admissions pt does have rapidly normalizing potassium with <90meq repletion and improvement over 12-24 hours Patient does not have a history of cardiac disease Propranolol stopped in the past, did not have symptoms of hyperthyroidism Patient does have elevated CK consistent with mild rhabdo, creatinine is normal. Did receive 1 L of LR, will follow and trend and balance hydration against hypokalemia at this time. Patient does follow with endocrinology. Of note methimazole dose was decreased from 40 to 20 mg 06/09/2021. Reached out endocrinology, left a message with the nurse to let Dr. Foote know patient has had a recurrent episode, and will temporarily increase methimazole dose to 40/20 mg and adjust as needed per their recommendations and follow-up. (2) Hypokalemia: Plan: - as above (3) Rhabdomyolysis: Plan: Mild, in the setting of thyrotoxic periodic paralysis. 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 He has had similar episodes in the past and does follow with endocrinology. In the emergency department potassium is decreased to 2.5, TSH undetectable, free T4 is normal, free T3 elevated at 5.8. Covid testing is negative. CK 827. No transaminitis. Magnesium 1.8. Creatinine normal at 0.61. Sodium is normal. No leukocytosis, hemoglobin 17. Blood pressure is normal, slightly tachycardic on admission. Chest x-ray is without acute findings. At bedside assessment patient reports he has been well and since his first e pisode in several months. He did have his methimazole decreased about 2 months ago, but is not sure what his dosing was. Is not taking propranolol, denies having symptoms of hyperthyroidism other than his periodic paralysis. At time of bedside denies chest pain, chest pressure, shortness of breath, difficulty breathing, lightheadedness, dizziness. He does report he feels globally sore but mostly in the thighs following a light jog. Done other heavy exercise. Reports his symptoms feel similar to his past episodes of periodic paralysis, but more mild than his last. No pain with urination, has voided today. 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 "Bad time to get sick ", but otherwise doing okay. No tobacco use, alcohol use, substance use prior to symptom onset. Medical History: Reviewed Medications: Reviewed Surgical History: Reviewed Allergies: Reviewed Social History: Reviewed Code Status: Full Code Allergies Allergy/AdvReac Type Severity Reaction Status Date / Time No Known Allergies Allergy Verified 08/06/21 09:41 Home Medications Medication Instructions Recorded Confirmed Type methimazole 10 mg tablet 20 mg PO BID #90 tab 05/03/21 08/06/21 Rx Past Med/Surg History Medical History Graves disease Hyperthyroidism Thyrotoxic periodic paralysis Surgical History No pertinent past surgical history Family History Denies family history of Diabetes Social History Smoking Status: Never smoker Second Hand Exposure: No; Hx Alcohol Use: No Hx Substance Use: No Preferred Language: Sammarinese Communication Ability: Effective 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 NAD. Cooperative. HEENT: Atraumatic, normocephalic. Patient and hearing grossly intact. Pupils equal and reactive to light Pulm: CTAB A&P. -wheezes, -rales, -rhonchi. Symmetrical chest rise. No increase in work of breathing. No respiratory distress. Cardiac: RRR, -mrg. Radial pulses intact and symmetrical. Abdominal: Nontender, nondistended, soft. BS present. Extremities: Attending Anesthesiologist strength, ankle dorsiflexion/plantarflexion's 5/5 bilaterally without asymmetry Hip flexion 4 -/5 bilaterally, able to lift briefly and very slightly to antigravity before dropping. Elbow flexion, shoulder flexion/extension 4/5 bilaterally. Sensation is soft touch intact in hands and feet without asymmetry. Radial and PT pulses intact bilaterally without asymmetry Results & Data Results & Data ([facility]) Vital Signs (Past 12 Hours) Vital Signs Pulse Pulse Resp BP BP Pulse Ox 08/06/21 10:00 98 H 18 138/85 98 08/06/21 08:43 109 H 20 150/88 H 96 Code Status & VTE Plan VTE Prophylaxis Plan VTE Prophylaxis will be ordered: Yes PG Care Time/CCT Total # of Minutes Spent Total Time Spent with Patient: Total time spent is greater than 50% in coordination of care (as documented) at patient's floor/unit and/or counseling patient: Coding Level of Care Code 89562 Initial Inpt Care Lvl 2 Diagnoses Thyrotoxic periodic paralysis G72.3 Hypokalemia E87.6 Rhabdomyolysis M62.82 Hyperthyroidism E05.90
[2021-08-06] MEDS ORDERED: ACETAMINOPHEN 325 MG TAB PO PRN (13:22)
[2021-08-06] MEDS ORDERED: ONDANSETRON INJ 2 MG/ML 2 ML VIAL IV PRN (13:22)
[2021-08-06] MEDS ORDERED: POLYETHYLENE (MIRALAX) 17 GM PACK PO PRN (13:22)
[2021-08-06] MEDS: LACTATED RINGER'S 1,000 ML IV SCH (13:47)
[2021-08-06 14:35] LABS: Anion Gap 7 (3-11); BUN Creatinine Ratio 15.6 (10-20); Blood Urea Nitrogen 10 mg/dl (6-23); Calcium 8.9 mg/dl (8.5-10.1); Carbon Dioxide 24 mmol/L (21-32); Chloride 108 mmol/L (98-107); Creatinine Clr Calc Pharmacy 196.4 ml/min; Est GFR (African American) > 150.0 ml/min; Glucose 99 mg/dl (70-99(Fasting)); Potassium 4.2 mmol/L (3.5-5.1); Sodium 139 mmol/L (136-145)
[2021-08-06] MEDS: methIMAzole 5 MG TABLET PO SCH (19:52)
[2021-08-06 20:32] LABS: BUN Creatinine Ratio 11.1 (10-20); Creatinine Clr Calc Pharmacy 155.2 ml/min; Est GFR (African American) 146.2 ml/min; Est GFR (Non-African American) 126.2 ml/min; Potassium 4.4 mmol/L (3.5-5.1)
[2021-08-06] MEDS ORDERED: methIMAzole 5 MG TABLET PO SCH (21:00)
[2021-08-07] MEDS: LACTATED RINGER'S 1,000 ML IV SCH ×4 (01:34→22:32)
[2021-08-07 02:00] LABS: Anion Gap 8 (3-11); BUN Creatinine Ratio 14.1 (10-20); Blood Urea Nitrogen 10 mg/dl (6-23); Calcium 9.1 mg/dl (8.5-10.1); Carbon Dioxide 23 mmol/L (21-32); Chloride 106 mmol/L (98-107); Est GFR (African American) > 150.0 ml/min; Est GFR (Non-African American) 133.2 ml/min; Glucose 91 mg/dl (70-99(Fasting)); Potassium 4.1 mmol/L (3.5-5.1); Sodium 137 mmol/L (136-145)
[2021-08-07 05:50] LABS: Basophils # (auto) 0.01 K/uL (0-0.2); Basophils % (auto) 0.2 %; Eosinophils # (auto) 0.24 K/uL (0-0.5); Eosinophils % (auto) 3.7 %; Hematocrit (blood only) 46.7 % (42-52); Hemoglobin 16.2 g/dL (14.0-18.0); Immature Granulocytes # (auto) 0.01 K/uL (0.00-0.02); Immature Granulocytes % (auto) 0.2 %; Lymphocytes # (auto) 2.52 K/uL (1.2-3.4); Lymphocytes % (auto) 38.4 %; Mean Corpuscular Hemoglobin 29.2 pg (25-34); Mean Corpuscular Hgb Conc 34.7 g/dL (32-36); Mean Corpuscular Volume 84.3 fL (80-100); Monocytes # (auto) 0.58 K/uL (0.11-0.59); Monocytes % (auto) 8.8 %; Neutrophils % (auto) 48.7 %; Platelet Count 326 K/uL (130-400); RDW Coefficient of Variation 12.2 % (11.5-14.5); RDW Standard Deviation 37.3 fL (36.4-46.3); Red Blood Count 5.54 M/uL (4.7-6.1); White Blood Count 6.56 K/uL (4.8-10.8)
[2021-08-07 06:12] LABS: Anion Gap 6 (3-11); BUN Creatinine Ratio 13.6 (10-20); Blood Urea Nitrogen 9 mg/dl (6-23); Calcium 9.3 mg/dl (8.5-10.1); Carbon Dioxide 25 mmol/L (21-32); Chloride 105 mmol/L (98-107); Creatinine Clr Calc Pharmacy 190.4 ml/min; Est GFR (African American) > 150.0 ml/min; Est GFR (Non-African American) 137.2 ml/min; Glucose 99 mg/dl (70-99(Fasting)); Potassium 4.1 mmol/L (3.5-5.1); Sodium 136 mmol/L (136-145)
--- NOTE | 2021-08-07 06:41 | Electrocardiogram Report ---
Test Reason : Blood Pressure : / mmHG Vent. Rate : 102 BPM Atrial Rate : 102 BPM P-R Int : 164 ms QRS Dur : 106 ms QT Int : 348 ms P-R-T Axes : 070 055 017 degrees QTc Int : 453 ms Sinus tachycardia Incomplete right bundle branch block ST elevation, consider early repolarization, pericarditis, or injury Borderline ECG When compared with ECG of 03-MAY-2021 06:09, T wave amplitude has decreased in Anterior leads Confirmed by Thad Gardner ([id number]) on 08/07/2021 6:40:41 AM Referred By: REFERRED SELF Confirmed By:Thad Gardner
[2021-08-07] MEDS ORDERED: methIMAzole 5 MG TABLET PO SCH (09:00)
[2021-08-07 09:31] LABS: Anion Gap 6 (3-11); BUN Creatinine Ratio 14.3 (10-20); Blood Urea Nitrogen 9 mg/dl (6-23); Calcium 9.4 mg/dl (8.5-10.1); Carbon Dioxide 26 mmol/L (21-32); Chloride 104 mmol/L (98-107); Creatinine Clr Calc Pharmacy 199.4 ml/min; Est GFR (African American) > 150.0 ml/min; Est GFR (Non-African American) 139.9 ml/min; Glucose 98 mg/dl (70-99(Fasting)); Potassium 4.2 mmol/L (3.5-5.1); Sodium 136 mmol/L (136-145)
[2021-08-07 10:11] LABS: Appearance Urine Clear (Clear); Bilirubin Urine Negative (Negative); Blood Urine Negative (Negative); Color Urine Yellow; Glucose Urine UA Negative (Negative); Ketones Urine Negative (Negative); Leukocyte Esterase Urine Negative (Negative); Nitrite Urine Negative (Negative); Protein Urine Negative (Negative); Urobilinogen Urine Negative (Negative); pH Urine 7.5 (4.5-7.5)
[2021-08-07] MEDS: methIMAzole 5 MG TABLET PO SCH (20:08)
--- NOTE | 2021-08-07 20:48 | Hospitalist Progress Note ---
Date of Service August 07, 2021 Assessment & Plan (1) Thyrotoxic periodic paralysis: Plan: recurrent. multiple hospitalizations for such. his hypokalemic episodes have all been precipitated by exercise. he has been counseled multiple times on what to do to prevent these spells. low K has been replaced and K levels remain stable. I spoke with Dr Foote today from endocrinology who is managing his hyperthyroidism -- plan, based on current TFTs, is to keep methimazole at 20mg BID. repeat TFTs in 2 weeks. then office visit in about 1 month. (2) Hypokalemia: Plan: see #1 above bmp am (3) Rhabdomyolysis: Plan: Mild, in the setting of thyrotoxic periodic paralysis. CPK trended up overnight. Increase LR to 150cc/hr. repeat CPK in am. (4) Hyperthyroidism: Plan: see #1 above. Hyperthyroidism is 2nd to Graves Disease. follows with Dr Foote. Plan: anticipate d/c home tomorrow Admission and Anticipated Discharge Date Admission Date: August 06, 2021 Subjective pt w/o any complaints feels good no myalgias of arms/legs eating well he states that 1 week ago he started taking 2 tabs of methimazole twice daily because he "thought he was having symptoms" (from hyperthyroidism) he states that before this hospital stay he went for a 20-minute jog Review of Systems Review of Systems: gen - no fevers cv - no cp pulm - no dyspnea GI - no abd pain, nausea, emesis, eating w/o difficulty Physical Exam Physical Exam: gen - WD, WN, NAD mouth - MMM heart - RRR, s1, s2, no murmur lungs - CTA b/l abd - soft NT ND BS+ ext - no edema, pulses 2+ b/l musculo - no swelling of either leg or arm or signs of compartment syndrome Results & Data Results & Data ([facility]) Vital Signs (Past 12 Hours) Vital Signs Temp Pulse Pulse Resp BP Pulse Ox Pulse Ox 08/07/21 19:17 36.7 C 84 20 116/71 96 08/07/21 15:25 36.8 C 78 20 113/69 96 08/07/21 15:22 84 08/07/21 13:22 98 08/07/21 11:30 36.6 C 99 H 16 124/70 96 Laboratory Results Laboratory Results - last 24 hr 08/07/21 08/07/21 08/07/21 01:08 05:34 05:34 WBC 6.56 RBC 5.54 Hgb 16.2 Hct 46.7 MCV 84.3 MCH 29.2 MCHC 34.7 RDW Std Deviation 37.3 RDW Coeff of Rory 12.2 Plt Count 326 MPV 10.0 Immature Gran % (Auto) 0.2 Neut % (Auto) 48.7 Lymph % (Auto) 38.4 [place] % (Auto) 8.8 Eos % (Auto) 3.7 Baso % (Auto) 0.2 Neut # (Auto) 3.20 Lymph # (Auto) 2.52 [place] # (Auto) 0.58 Eos # (Auto) 0.24 Baso # (Auto) 0.01 Immature Gran # (Auto) 0.01 Sodium 137 136 Potassium 4.1 4.1 Chloride 106 105 Carbon Dioxide 23 25 Anion Gap 8 6 BUN 10 9 Creatinine 0.71 0.66 Est Cr Clr Drug Dosing 177.0 190.4 Est GFR ( Amer) > 150.0 > 150.0 Est GFR (Non-Af Amer) 133.2 137.2 BUN/Creatinine Ratio 14.1 13.6 Glucose 91 99 Calcium 9.1 9.3 Total Creatine Kinase Urine Color Urine Appearance Urine pH Ur Specific [place] Urine Protein Urine Glucose (UA) Urine Ketones Urine Blood Urine Nitrite Urine Bilirubin Urine Urobilinogen Ur Leukocyte Esterase 08/07/21 08/07/21 08/07/21 05:34 08:56 10:00 WBC RBC Hgb Hct MCV MCH MCHC RDW Std Deviation RDW Coeff of Rory Plt Count MPV Immature Gran % (Auto) Neut % (Auto) Lymph % (Auto) [place] % (Auto) Eos % (Auto) Baso % (Auto) Neut # (Auto) Lymph # (Auto) [place] # (Auto) Eos # (Auto) Baso # (Auto) Immature Gran # (Auto) Sodium 136 Potassium 4.2 Chloride 104 Carbon Dioxide 26 Anion Gap 6 BUN 9 Creatinine 0.63 Est Cr Clr Drug Dosing 199.4 Est GFR ( Amer) > 150.0 Est GFR (Non-Af Amer) 139.9 BUN/Creatinine Ratio 14.3 Glucose 98 Calcium 9.4 Total Creatine Kinase 1269 H Urine Color Yellow Urine Appearance Clear Urine pH 7.5 Ur Specific [place] 1.020 Urine Protein Negative Urine Glucose (UA) Negative Urine Ketones Negative Urine Blood Negative Urine Nitrite Negative Urine Bilirubin Negative Urine Urobilinogen Negative Ur Leukocyte Esterase Negative PG Care Time/CCT Total # of Minutes Spent Total Time Spent with Patient: Total time spent is greater than 50% in coordination of care (as documented) at patient's floor/unit and/or counseling patient: Coding Level of Care Code 26359 Subseq Hosp Care Lvl 2 Diagnoses Thyrotoxic periodic paralysis G72.3 Hypokalemia E87.6 Rhabdomyolysis M62.82 Hyperthyroidism E05.90
[2021-08-08] MEDS: LACTATED RINGER'S 1,000 ML IV SCH (05:42)
[2021-08-08 07:24] LABS: Anion Gap 8 (3-11); BUN Creatinine Ratio 15.6 (10-20); Blood Urea Nitrogen 10 mg/dl (6-23); Calcium 9.4 mg/dl (8.5-10.1); Carbon Dioxide 25 mmol/L (21-32); Chloride 104 mmol/L (98-107); Creatine Kinase 528 U/L (30-223); Creatinine Clr Calc Pharmacy 195.5 ml/min; Est GFR (African American) > 150.0 ml/min; Glucose 90 mg/dl (70-99(Fasting)); Potassium 3.8 mmol/L (3.5-5.1); Sodium 137 mmol/L (136-145)
[2021-08-08] MEDS ORDERED: POTASSIUM CHLORIDE CRTAB 20 MEQ TABCR PO STA (08:25)
[2021-08-08] MEDS ORDERED: methIMAzole 5 MG TABLET PO SCH (09:00)
--- NOTE | 2021-08-08 11:02 | Discharge Summary ---
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 He has had similar episodes in the past and does follow with endocrinology. In the emergency department potassium is decreased to 2.5, TSH undetectable, free T4 is normal, free T3 elevated at 5.8. Covid testing is negative. CK 827. No transaminitis. Magnesium 1.8. Creatinine normal at 0.61. Sodium is normal. No leukocytosis, hemoglobin 17. Blood pressure is normal, slightly tachycardic on admission. Chest x-ray is without acute findings. At bedside assessment patient reports he has been well and since his first episode in several months. He did have his methimazole decreased about 2 months ago, but is not sure what his dosing was. Is not taking propranolol, denies having symptoms of hyperthyroidism other than his periodic paralysis. At time of bedside denies chest pain, chest pressure, shortness of breath, difficulty breathing, lightheadedness, dizziness. He does report he feels globally sore but mostly in the thighs following a light jog. Done other heavy exercise. Reports his symptoms feel similar to his past episodes of periodic paralysis, but more mild than his last. No pain with urination, has voided today. 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 "Bad time to get sick ", but otherwise doing okay. No tobacco use, alcohol use, substance use prior to symptom onset. Medical History: Reviewed Medications: Reviewed Surgical History: Reviewed Allergies: Reviewed Social History: Reviewed Code Status: Full Code Principal Diagnosis 1. hypokalemia - resolved 2. thyrotoxic periodic paralysis with resulting hypokalemia 3. mild rhabdomyolysis - resolved 4. hyperthyroidism / Graves Disease Discharge Exam gen - WD, WN, NAD mouth - MMM heart - RRR, s1, s2, no murmur lungs - CTA b/l abd - soft NT ND BS+ ext - no edema, pulses 2+ b/l musculo - no swelling of either leg or arm, or signs of compartment syndrome neuro - no tremor skin - no rash Discharge Data Allergies Allergy/AdvReac Type Severity Reaction Status Date / Time No Known Allergies Allergy Verified 08/06/21 09:41 Ordered Studies Chest X-Ray 08/06/21 08:53 XR chest 1V portable CLINICAL HISTORY: weakness TECHNIQUE: Single frontal radiograph of the chest was obtained. Comparison: Comparison is made to chest one view 04/05/2021 FINDINGS: No lines and tubes are seen. The cardiomediastinal silhouette is normal. Bilateral lower lung predominant airspace opacities are seen. No evidence of pleural effusion or pneumothorax. IMPRESSION: No acute chest disease. ACT 112: Negative or not required by law. Electronically signed by: Isael Aden M.D. 08/06/2021 9:36 AM Hospital Course (1) Thyrotoxic periodic paralysis: Recurrent episodes with multiple hospitalizations for such. His hypokalemic episodes have all been precipitated by exercise. He has been counseled multiple times on how to prevent these spells (ie - AVOID STRENUOUS PHYSICAL ACTIVITIES UNTIL HIS HYPERTHYROID STATE IS FULLY CONTROLLED). I gave Mr Perez a patient handout on periodic paralysis which details what precipitates these spells. He voiced understanding of these recommendations. Presenting potassium level = 2.5. Improved to 3.8 at discharge following IV/PO replacement. I spoke with Dr Karson Foote from [facility] who is managing his hyperthyroidism in the outpatients setting -- plan, based on current TFTs, is to keep methimazole at 20mg BID. Repeat TFTs in 2 weeks. A repeat BMP will also be obtained at the time of the TFTs. Then office visit in about 1 month. See below regarding his TFTs. (2) Hypokalemia: see #1 above. resolved with IV/PO replacement. Discharge K = 3.8. (3) Rhabdomyolysis: Mild, in the setting of thyrotoxic periodic paralysis and recent exercise (running/jogging). Treated with IV fluids. Peak CPK = 1269. CPK prior to discharge = 528. He was advised to drink copious amounts of liquid at home for the next few days post-discharge and to AVOID STRENUOUS ACTIVITIES UNTIL HIS HYPERTHYROID STATE IS FULLY CONTROLLED. (4) Hyperthyroidism: Hyperthyroidism is 2nd to Graves Disease. Follows with Dr Karson Foote - [facility]. TFTs during this visit - TSH = <0.010 FT4 = 1.20 (normal) FT3 = 5.80 (high) Dr Foote advised methimazole 20mg BID at time of discharge. Patient to have repeat TFTs in 2 weeks post-discharge followed by an office visit with Dr Foote in ~1 month post-discharge. Total Time Total Time Spent Total Time Spent (In Minutes): 40 Discharge Plan Discharge Items Patient Disposition: Home - Self-Care Reason For Visit: LEG WEAKNESS, LOW POTASSIUM Discharge Diagnosis: 1. low potassium - due to "hypokalemic periodic paralysis" - resolved, potassium level now normal 2. rhabdomyolysis - resolved 3. Graves disease / hyperthyroidism Activity: As commented below Activity Comment: NO STRENUOUS PHYSICAL ACTIVITY (NO JOGGING/RUNNING, SWIMMING, WEIGHT LIFT) Lifting: No more than 10 pounds Sexual Activity: Wait until after follow-up appointment Exercise Comment: NO HEAVY PHYSICAL ACTIVITIES; LIGHT WALKS ARE OK Driving/Machine Use: No limitations Non-emergency contact: Primary Care Provider and Specialist Call non-emergency contact if: you have any medication questions, your symptoms worsen, your pain is not controlled, your pain is worsening, your pain is unusual for you and your pain is concerning for you Follow-up/Referrals: Karson Foote MD [Physician] - (1 month ) [facility] [Primary Care Provider] - (See [facility] within 1 week ) Diet: Regular Ambulatory Orders: Basic Metabolic Panel (Routine) Timeframe: 2 Weeks Location: Determined by Patient Ordered By: Ruben Ayoub T3 Free (Routine) Timeframe: 2 Weeks Location: Determined by Patient Ordered By: Ruben Ayoub T4 Free Thyroxine (Routine) Timeframe: 2 Weeks Location: Determined by Patient Ordered By: Ruben Ayoub Thyroid Stimulating Hormone (Routine) Timeframe: 2 Weeks Location: Determined by Patient Ordered By: Ruben Ayoub Addtl Attending Provider Instructions: Mr Perez, You were hospitalized for low potassium, also known at "hypokalemia." Your presenting potassium level was 2.5 (low). Your discharge potassium level was 3.8 (normal). Your potassium level dropped because of the jogging you had done just prior to admission. Because of your hyperthyroidism/Graves Disease you are having attacks from a condition called "hypokalemic periodic paralysis." This is also called "thyrotoxic periodic paralysis." This condition is most common in men. Until your thyroid condition is completely controlled you will likely continue to suffer attacks of low potassium. In order to avoid these episodes you must do the following -- (see handout on periodic paralysis as well) * avoid strenuous activity/exercise of any kind - this includes jogging, running, bicycling, lifting weights, going to the gym, playing basketball, swimming, etc; light walks and light activities are acceptable * avoid high sugar/carbohydrate rich meals * try to keep stress (anxiety) levels down as much as possible; practice relaxation techniques to help keep stress at minimum * avoid cold temperatures Additional recommendations - 1. You will need blood work in 2 weeks. Please come to the main entrance at [facility] to have this blood work. Be sure to bring the lab slips with you. 2. Methimazole dose - I confirmed with your thyroid doctor, Dr Foote, to take methimazole 20mg TWICE DAILY. 3. See Dr Foote in 1 month. 4. See [facility] in 1 week. 5. Stay well-hydrated during the summer-time months, especially when you are taking walks, etc. Return to [facility] if - * you have muscle weakness or pain (arms or legs) * you have severe muscle cramps * you have significant weakness * any other concerns Pending Studies at Discharge: No Stand-Alone Forms: [facility], Smoking Cessation Medications and DC Order Prescriptions: No Action methimazole 10 mg tablet 20 mg PO BID Qty: 90 RF: 3 Discharge Orders: Discharge Order (Routine); Ordered 08/08/21 Ordered By: Ruben Ayoub Admission Data Admit Date/Time: 08/06/21 11:04 Attending Provider: Ruben Ayoub Admit Provider: Segun Paul Primary Care Provider: [facility] Other Providers: Segun Paul Other Interventions: Discharge Summary Assessment (RN) Last Done: 08/08/21 11:08 Coding Level of Care Code D/C DAY MANAGEMENT >30 MINS Diagnoses Thyrotoxic periodic paralysis G72.3 Hypokalemia E87.6 Rhabdomyolysis M62.82 Hyperthyroidism E05.90
== END 2021-08-08 13:18 | disposition home or self-care (01) | DRG 92 ==
LOC: ED 08:37 → SUATTDRO 11:04 → 2N 11:04
DX: G72.3 Periodic paralysis; I45.10 Unspecified right bundle-branch block; M62.82 Rhabdomyolysis; R79.82 Elevated C-reactive protein (CRP); E05.00 Thyrotoxicosis with diffuse goiter without thyrotoxic crisis or storm